=== PATIENT | female | born 1970 | race Caucasian/White ===

== ENCOUNTER 2016-02-25 19:17 | Emergency (ER) | payer OTHER ==
[~2016-02-25] VITALS: Ht 172.7 cm; Wt 158.8 kg
[~2016-02-25 19:17] MED LIST: CLON1TAB3 PO; ESOM40CA25 PO; ESTR1TAB15 PO; METF500T4 PO; MONT10TA9 PO; OMEP40CA2 PO; VENL75CA PO
[2016-02-25] MEDS ORDERED: NITROGLYCERIN SUBLINGUAL 0.4 MG BOTTLE OF 25. SL PRN (19:45)
[2016-02-25] MEDS ORDERED: FENTANYL PF 100 MCG/2 ML VIAL. IV PRN (19:45)
[2016-02-25 19:49] LABS: BASO # 0.1 x10^3/uL (0.0-0.2); BASO % 1 % (0-3); EOS % 2 % (0-3); HEMATOCRIT 39.8 % (36.0-47.0); HEMOGLOBIN 13.1 g/dL (12.0-15.5); LYMPH # 2.9 x10^3/uL (1.0-4.8); LYMPH % 23 % (24-48); MEAN CORPUSCULAR HEMOGLOBIN 30 pg (25-35); MEAN CORPUSCULAR HGB CONC 33 g/dL (31-37); MEAN CORPUSCULAR VOLUME 93 fL (79-100); MONO % 7 % (0-9); NEUT % 68 % (31-73); PLATELET COUNT 336 x10^3/uL (140-400); RED CELL DISTRIBUTION WIDTH 14.8 % (11.5-14.5); WHITE BLOOD COUNT 12.9 x10^3/uL (4.0-11.0)
[2016-02-25 20:01] LABS: CALCIUM 9.1 mg/dL (8.5-10.1); CREATININE 1.2 mg/dL (0.6-1.0); GFR 48.2; POTASSIUM 3.7 mmol/L (3.5-5.1)
[2016-02-25 20:03] LABS: PROTHROMBIN TIME PATIENT 12.4 SEC (11.7-14.0)
[2016-02-25 20:26] LABS: BILIRUBIN,URINE NEGATIVE (NEG); GLUCOSE,URINE NEGATIVE (NEG); NITRITE,URINE NEGATIVE (NEG); PROTEIN,URINE NEGATIVE (NEG-TRACE); UROBILINOGEN,URINE 0.2 mg/dL (0.2 mg/dL)
[2016-02-25 20:32] LABS: BARBITURATES NEG (NEG); BENZODIAZEPINES NEG (NEG); CANNABINOIDS NEG (NEG); COCAINE NEG (NEG); ETHANOL, URINE NEG (NEG); METHADONE NEG (NEG); OPIATES NEG (NEG); PHENCYCLIDINE NEG (NEG)
[2016-02-25 20:33] LABS: BACTERIA,URINE 0 /HPF (0-FEW)
[2016-02-25 20:34] LABS: SQUAMOUS EPITHELIAL CELL,UR FEW /LPF
[2016-02-25 20:37] LABS: NEG OBC UR NEG; POS OBC UR POS
--- NOTE | 2016-02-25 21:31 | EKG ---
[facility] [address] [place] [address] Test Date: 2016-02-25 Test Time: 19:32:44 Pat Name: JOANA LUBIN Department: Patient ID: 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
[2016-02-25 22:50] VITALS: BP 111/67
--- NOTE | 2016-02-26 02:16 | ED.ADGEN ---
Past Medical History Past Medical History: Diabetes-Type II, Other Additional Past Medical Histor: rheumatoid arthritis Past Surgical History: Cholecystectomy, Hysterectomy Alcohol Use: None Drug Use: None Adult General Chief Complaint Chief Complaint: CHEST PAIN HPI HPI Patient is a 45 year old woman, with a history of anxiety, hypertension, hyperlipidemia, type 2 diabetes mellitus, who presents emergency Department with a complaint of a panic attack. Patient states that she was at home, and she began to feel anxious about some life events, she states that she did take her clonazepam, which she had refilled today after being out of the medication for about a week. She states that she then attempted distract herself from her anxiety by playing a video game, but felt increasingly anxious, then developed some chest tightness in her left upper chest, and left arm. Patient states that she's had similar symptoms previously with panic attacks, and currently is experiencing no symptoms at this point. She denies any shortness breath, any nausea or vomiting, any weakness emesis or tingling, any radiation of the pain to the back neck or shoulder. States that she has not previously had a cardiac evaluation. There is no family history of early cardiac disease. No swelling extremities, history of recent travel or surgery, history of DVT or PE. Review of Systems Review of Systems Constitutional: Denies fever or chills. [] Eyes: Denies change in visual acuity. [] HENT: Denies nasal congestion or sore throat. [] Respiratory: Denies cough or shortness of breath. [] Cardiovascular: Denies chest pain or edema. [] GI: Denies abdominal pain, nausea, vomiting, bloody stools or diarrhea. [] : Denies dysuria. [] Musculoskeletal: Denies back pain or joint pain. [] Integument: Denies rash. [] Neurologic: Denies headache, focal weakness or sensory changes. [] Endocrine: Denies polyuria or polydipsia. [] Lymphatic: Denies swollen glands. [] Psychiatric: Denies depression or anxiety. [] Current Medications Current Medications Current Medications Medications (Trade) Dose Ordered Sig/Fortino Start Time Stop Time Status Last Admin Dose Admin Fentanyl Citrate (Fentanyl 2ml Vial) 25 mcg PRN Q15MIN PRN 02/25/16 19:45 02/25/16 23:08 DC Nitroglycerin (Nitrostat) 0.4 mg PRN Q5MIN PRN 02/25/16 19:45 02/25/16 23:08 DC Allergies Allergies Allergies Coded Allergies Type Severity Reaction Last Updated Verified No Known Drug Allergies 03/03/14 No Physical Exam Physical Exam Constitutional: Well developed, obese, no acute distress, non-toxic appearance. [] HENT: Normocephalic, atraumatic, bilateral external ears normal, oropharynx moist, no oral exudates, nose normal. [] Eyes: PERRLA, EOMI, conjunctiva normal, no discharge. [] Neck: Normal range of motion, no tenderness, supple, no stridor. [] Cardiovascular:Heart rate regular rhythm, no murmur, S1, S2, rubs or gallops. [] Lungs & Thorax: Bilateral breath sounds clear to auscultation, no wheezing, rhonchi, rales. No chest tenderness or crepitus. [] Abdomen: Bowel sounds normal, soft, no tenderness, no masses, no rebound, rigidity, no guarding, no pulsatile masses. [] Skin: Warm, dry, no erythema, no rash. [] Back: No tenderness, no CVA tenderness. [] Extremities: No tenderness, no cyanosis, no clubbing, ROM intact, no edema. Negative Homans sign. [] Neurologic: Alert and oriented X 3, normal motor function, normal sensory function, no focal deficits noted. [] Psychologic: Affect normal, judgement normal, mood normal. [] Current Patient Data Vital Signs Vital Signs Date Time Temp Pulse Resp B/P Pulse Ox O2 Delivery O2 Flow Rate FiO2 02/25/16 22:50 111/67 02/25/16 22:20 76 22 96 Room Air 02/25/16 19:25 98.7 98.7 Lab Values Laboratory Tests Test 02/25/16 19:39 02/25/16 20:10 02/25/16 22:03 White Blood Count 12.9x10^3/uL (4.0-11.0) H Red Blood Count 4.30x10^6/uL (3.50-5.40) Hemoglobin 13.1g/dL (12.0-15.5) Hematocrit 39.8% (36.0-47.0) Mean Corpuscular Volume 93fL (79-100) Mean Corpuscular Hemoglobin 30pg (25-35) Mean Corpuscular Hemoglobin Concent 33g/dL (31-37) Red Cell Distribution Width 14.8% (11.5-14.5) H Platelet Count 336x10^3/uL (140-400) Neutrophils (%) (Auto) 68% (31-73) Lymphocytes (%) (Auto) 23% (24-48) L Monocytes (%) (Auto) 7% (0-9) Eosinophils (%) (Auto) 2% (0-3) Basophils (%) (Auto) 1% (0-3) Neutrophils # (Auto) 8.7x10^3uL (1.8-7.7) H Lymphocytes # (Auto) 2.9x10^3/uL (1.0-4.8) Monocytes # (Auto) 0.9x10^3/uL (0.0-1.1) Eosinophils # (Auto) 0.2x10^3/uL (0.0-0.7) Basophils # (Auto) 0.1x10^3/uL (0.0-0.2) Prothrombin Time 12.4SEC (11.7-14.0) Prothrombin Time INR 1.0 (0.8-1.1) Sodium Level 140mmol/L (136-145) Potassium Level 3.7mmol/L (3.5-5.1) Chloride Level 104mmol/L (98-107) Carbon Dioxide Level 27mmol/L (21-32) Anion Gap 9 (6-14) Blood Urea Nitrogen 19mg/dL (7-20) Creatinine 1.2mg/dL (0.6-1.0) H Estimated GFR (Cockcroft-Gault) 48.2 Glucose Level 129mg/dL (70-99) H Calcium Level 9.1mg/dL (8.5-10.1) Troponin I Quantitative < 0.017ng/mL (0.000-0.055) MI-Per-F-Type Natriuretic Peptide 156pg/mL (0-124) H Lipase 221U/L (73-393) Urine Collection Type Unknown Urine Color Yellow Urine Clarity Clear Urine pH 6.0 Urine Specific [place] 1.025 Urine Protein Negativemg/dL (NEG-TRACE) Urine Glucose (UA) Negativemg/dL (NEG) Urine Ketones (Stick) Tracemg/dL (NEG) Urine Blood Negative (NEG) Urine Nitrite Negative (NEG) Urine Bilirubin Negative (NEG) Urine Urobilinogen Dipstick 0.2mg/dL (0.2 mg/dL) Urine Leukocyte Esterase Trace (NEG) Urine RBC 1-2/HPF (0-2) Urine WBC 1-4/HPF (0-4) Urine Squamous Epithelial Cells Few/LPF Urine Bacteria 0/HPF (0-FEW) Urine Mucus Slight/LPF Urine Test Negative (NEG) Urine Opiates Screen Neg (NEG) Urine Methadone Screen Neg (NEG) Urine Barbiturates Neg (NEG) Urine Phencyclidine Screen Neg (NEG) Urine Amphetamine/Methamphetamine Neg (NEG) Urine Benzodiazepines Screen Neg (NEG) Urine Cocaine Screen Neg (NEG) Urine Cannabinoids Screen Neg (NEG) Urine Ethyl Alcohol Neg (NEG) POC Troponin I 0.00ng/ml (<0.08) Laboratory Tests 02/25/16 19:39 Laboratory Tests 02/25/16 19:39 EKG EKG EC: Sinus rhythm, heart rate 74 bpm, upright axis, QTC of 407, HI 168, QRS of 94, no ST elevations or depressions, no evidence of acute ST abnormalities. As interpreted by me. Radiology/Procedures Radiology/Procedures Chest x-ray: Patient with limited respiratory effort, normal-appearing cardiac silhouette, no infiltrates, no effusions, no soft tissue or bony abnormalities identified in the visualized area. As interpreted by me. [] Course & Med Decision Making Course & Med Decision Making Pertinent Labs and Imaging studies reviewed. (See chart for details) Patient states that she has resolution of her symptoms at this time, states that they lasted for only a few minutes, however based on her history of tubal comorbidities, and lack of previous evaluation, she is agreeable to receiving evaluation at this time in the ED. ECG obtained reveals no evidence of concerning findings, chest x-ray was unremarkable, initial troponin was negative , as was troponin performed after 3 hours in the ED, which is now more than 4 hours out from the patient's initial symptoms. I did discuss potential admission to the hospital for additional evaluation of her symptoms, patient declined admission, stating that she would be able to follow-up with her primary care provider, and also with her mental health specialist for additional evaluation, she would also return to the ED if any new or concerning symptoms develop. Patient discharged home in stable condition with family with plan as stated above. Dragon Disclaimer Dragon Disclaimer This electronic medical record was generated, in whole or in part, using a voice recognition dictation system. Departure Impression: Primary Impression: Anxiety Additional Impression: Chest pain Disposition: HOME, SELF-CARE Condition: IMPROVED Problem Qualifiers Additional Impression: Chest pain Chest pain type: unspecified Qualified Code: R07.9 - Chest pain, unspecified CINTIA QUINTERO DO Feb 26, 2016 02:16
--- NOTE | 2016-02-26 08:21 | RAD ---
Indication chest pain. Tachycardia. History of hypertension. A single view of the chest was obtained. Comparison is made to an exam 2 years earlier. Heart size is at the upper limits of normal. There is no congestive heart failure focal infiltrate significant pleural fluid collection or pneumothorax. Bony structures appear grossly intact. IMPRESSION: No acute or focal process is seen in the chest
== END 2016-02-25 23:00 | disposition home or self-care (01) ==
LOC: ER 19:17
DX: F41.9 Anxiety disorder, unspecified (principal); R07.89 Other chest pain; E11.9 Type 2 diabetes mellitus without complications; E78.5 Hyperlipidemia, unspecified; I10 Essential (primary) hypertension; M06.9 Rheumatoid arthritis, unspecified; Z90.49 Acquired absence of other specified parts of digestive tract; Z90.710 Acquired absence of both cervix and uterus
CPT/HCPCS: 36415; 71010; 80048; 81001; 81025; 83690; 83880; 84484; 85027; 85610; 93005; 99285; G0481

== ENCOUNTER 2017-08-05 07:04 | Emergency (ER) | payer OTHER ==
[2017-08-05 08:11] LABS: ADD MAN DIFF? NO
[2017-08-05] MEDS: IV NORMAL SALINE 1000ML BAG 1,000 ML IV (08:18)
[2017-08-05 08:26] LABS: ANION GAP 11 (6-14); BLOOD UREA NITROGEN 17 mg/dL (7-20); BUN/CREATININE RATIO 15 (6-20); CALCIUM 9.3 mg/dL (8.5-10.1); CARBON DIOXIDE 27 mmol/L (21-32); CHLORIDE 101 mmol/L (98-107); CREATININE 1.1 mg/dL (0.6-1.0); GFR 52.8; GLUCOSE 132 mg/dL (70-99); POTASSIUM 3.5 mmol/L (3.5-5.1); SODIUM 139 mmol/L (136-145)
[2017-08-05 08:32] LABS: ALBUMIN 3.6 g/dL (3.4-5.0); ALBUMIN/GLOBULIN RATIO 0.8 (1.0-1.7); ALK PHOS 90 U/L (46-116); ALT (SGPT) 40 U/L (14-59); AST (SGOT) 30 U/L (15-37); TOTAL BILIRUBIN 0.5 mg/dL (0.2-1.0); TOTAL PROTEIN 7.9 g/dL (6.4-8.2)
[2017-08-05 08:38] LABS: BASO # 0.1 x10^3/uL (0.0-0.2); BASO % 1 % (0-3); EOS # 0.2 x10^3/uL (0.0-0.7); EOS % 2 % (0-3); HEMATOCRIT 39.1 % (36.0-47.0); HEMOGLOBIN 13.1 g/dL (12.0-15.5); LYMPH # 3.5 x10^3/uL (1.0-4.8); LYMPH % 31 % (24-48); MEAN CORPUSCULAR HEMOGLOBIN 29 pg (25-35); MEAN CORPUSCULAR HGB CONC 34 g/dL (31-37); MEAN CORPUSCULAR VOLUME 86 fL (79-100); MONO % 8 % (0-9); NEUT # 6.7 x10^3uL (1.8-7.7); NEUT % 59 % (31-73); PLATELET COUNT 311 x10^3/uL (140-400); RED BLOOD COUNT 4.54 x10^6/uL (3.50-5.40); RED CELL DISTRIBUTION WIDTH 15.7 % (11.5-14.5); WHITE BLOOD COUNT 11.4 x10^3/uL (4.0-11.0)
[2017-08-05] MEDS: IOHEXOL 300 MG/ML 100ML VIAL. IV (09:00)
[2017-08-05] MEDS ORDERED: CONTRAST GIVEN. MC (09:15)
[2017-08-05 09:46] LABS: BILIRUBIN,URINE NEGATIVE (NEG); CLARITY,URINE CLEAR; COLOR,URINE YELLOW; GLUCOSE,URINE NEGATIVE (NEG); NITRITE,URINE NEGATIVE (NEG); PROTEIN,URINE NEGATIVE (NEG-TRACE); UROBILINOGEN,URINE 0.2 mg/dL (0.2 mg/dL)
[2017-08-05 09:50] LABS: BACTERIA,URINE 0 /HPF (0-FEW); RBC,URINE 0 /HPF (0-2); SQUAMOUS EPITHELIAL CELL,UR FEW /LPF
== END 2017-08-05 10:36 | disposition home or self-care (01) ==
LOC: ER 07:04
DX: R10.31 Right lower quadrant pain (principal); E11.9 Type 2 diabetes mellitus without complications; I10 Essential (primary) hypertension; M19.90 Unspecified osteoarthritis, unspecified site; Z90.49 Acquired absence of other specified parts of digestive tract; Z90.710 Acquired absence of both cervix and uterus
CPT/HCPCS: 36415; 74177; 80053; 81001; 84702; 85025; 87086; 96360; 96361; 99285-25; J7030; Q9967

== ENCOUNTER → 2017-10-03 | Day surgery (SDC) | payer OTHER ==
[~2017-10-03] MED LIST changes: -CLON1TAB3 PO; +CLON1TAB4 PO; +IV RINGERS,LACTATED 1000ML 1,000 ML IV SCH; +LIDOCAINE 1% PF 2 ML VIAL. ID PRN; +LIDOCAINE 2% PF Vial for OR 5 ML VIAL. ONE; +LISI-338 PO; -METF500T4 PO; +METF500T5 PO; +MIDAZOLAM HCL/PF 2 MG/2 ML VIAL. IV PRN; +PANT20TA2 PO; +PRAV40TA2 PO; +PROPOFOL 20 ML IV ONE; +SERT100T PO; +fentaNYL PF VIAL 100 MCG/2 ML VIAL IV PRN
[2017-10-03 11:47] VITALS: BP 117/59
--- NOTE | 2017-10-05 10:53 | PATHOLOGY ---
[facility] Accession Number: [id number] . 01 Material submitted: . ANTRUM BIOPSY . 01 Clinical history: . Abdominal pain . 02 Diagnosis: Gastric biopsy, antrum: - Mild chronic gastritis, focally active. (JPM:yamilka; 10/04/2017) QMS/10/04/2017 . 02 Comment: Sections of the gastric antral biopsy show congestion and focally active mild chronic inflammation. A properly controlled immunoperoxidase stain for Helicobacter is negative for helicobacter organisms. There is no evidence of malignancy. (JPM:yamilka; 10/04/2017) . . . Special stain performed: Immunoperoxidase stain for Helicobacter . 02 Electronically signed: . Blake Martel MD, Pathologist NPI- [id number] . 01 Gross description: . Received in formalin labeled "Makayla Clemente, antrum biopsy," are 2 segments of saldana soft tissue measuring 0.9 x 0.2 x 0.2 cm in aggregate dimensions and ranging from 0.4 to 0.5 cm in maximum dimension. The specimen is submitted entirely in cassette A1. (TSD; 10/03/2017) TOB/TOB . 02 Pathologist provided ICD-10: K29.50 . 02 CPT . 482008, [id number] Performed at: 01 [facility] [address], [place] [id number] MD Haja Thompson MD Phone: [phone] Performed at: 02 [facility] [address], [place] [id number] MD Blake Martel MD Phone: [phone]
== END | disposition home or self-care (01) ==
LOC: ENDOS 09:46
PROVIDERS: ATTEND Internal Medicine Gastroenterology
DX: K29.50 Unspecified chronic gastritis without bleeding (principal); Z90.49 Acquired absence of other specified parts of digestive tract; I10 Essential (primary) hypertension; F32.9 Major depressive disorder, single episode, unspecified; K21.9 Gastro-esophageal reflux disease without esophagitis; F41.1 Generalized anxiety disorder; E11.9 Type 2 diabetes mellitus without complications; E78.00 Pure hypercholesterolemia, unspecified; E66.9 Obesity, unspecified; Z68.43 Body mass index [BMI] 50.0-59.9, adult; Z86.010 Personal history of colon polyps; M17.0 Bilateral primary osteoarthritis of knee; Z90.710 Acquired absence of both cervix and uterus; Z79.899 Other long term (current) drug therapy; Z88.5 Allergy status to narcotic agent; Z79.84 Long term (current) use of oral hypoglycemic drugs
CPT/HCPCS: 43239; J2001; J2704; 88305; 88342

== ENCOUNTER 2017-10-28 14:35 | Emergency (ER) | payer OTHER ==
[~2017-10-28] VITALS: Ht 172.7 cm; Wt 136.1 kg
[~2017-10-28 14:35] MED LIST changes: -IV RINGERS,LACTATED 1000ML 1,000 ML IV SCH; -LIDOCAINE 1% PF 2 ML VIAL. ID PRN; -LIDOCAINE 2% PF Vial for OR 5 ML VIAL. ONE; +METF500T16 PO; -METF500T5 PO; -MIDAZOLAM HCL/PF 2 MG/2 ML VIAL. IV PRN; -PROPOFOL 20 ML IV ONE; -fentaNYL PF VIAL 100 MCG/2 ML VIAL IV PRN
[2017-10-28] MEDS ORDERED: IPRATRPIUM/ALBUTEROL 0.5/2.5MG 3 ML NEBU. NEB ONE (15:15)
[2017-10-28] MEDS ORDERED: predniSONE 20 MG TABLET PO ONE (15:15)
--- NOTE | 2017-10-28 15:28 | PHYS DOC ---
Past Medical History Past Medical History: Anxiety, Diabetes-Type II, Hypertension, Other Additional Past Medical Histor: rheumatoid arthritis, ibs Past Surgical History: Cholecystectomy, Hysterectomy Alcohol Use: None Drug Use: None Adult General Chief Complaint Chief Complaint: SHORTNESS OF BREATH HPI HPI Patient is a 47 year old female with history of diabetes type 2, anxiety, hypertension, who presents today complaining of her allergies acting up. Patient states for the last 2 days she's not been able to breathe well through her nose, she states she is congested. She also states she has not had a good night sleep for couple days. She states she would like something to help her sleep. She states she is currently trying Benadryl with no relief. Patient denies any fever. Denies any chest pain. Denies any shortness of breath. She states she is currently using Flonase and Singulair for her allergies with no relief. PCP Dr. Aguirre Review of Systems Review of Systems Constitutional: Denies fever or chills [] Eyes: Denies change in visual acuity, redness, or eye pain [] HENT: Reports nasal congestion, denies sore throat [] Respiratory: Reports cough, denies shortness of breath [] Cardiovascular: No additional information not addressed in HPI [] GI: Denies abdominal pain, nausea, vomiting, bloody stools or diarrhea [] : Denies dysuria or hematuria [] Musculoskeletal: Denies back pain or joint pain [] Integument: Denies rash or skin lesions [] Neurologic: Denies headache, focal weakness or sensory changes [] All other systems were reviewed and found to be within normal limits, except as documented in this note. Current Medications Current Medications Current Medications Medications (Trade) Dose Ordered Sig/Fortino Start Time Stop Time Status Last Admin Dose Admin Albuterol/ Ipratropium (Duoneb) 3 ml 1X ONCE 10/28/17 15:15 10/28/17 15:16 DC 10/28/17 16:15 3 ML Prednisone (Prednisone) 60 mg 1X ONCE 10/28/17 15:15 10/28/17 15:16 DC 10/28/17 15:26 60 MG Allergies Allergies Allergies Coded Allergies Type Severity Reaction Last Updated Verified No Known Drug Allergies 10/28/17 No Physical Exam Physical Exam Constitutional: Well developed, well nourished, no acute distress, non-toxic appearance. [] HENT: Normocephalic, atraumatic, bilateral external ears normal, oropharynx moist, no oral exudates, nose normal. [employer] [place] Eyes: PERRLA, EOMI, conjunctiva normal, no discharge. [] Neck: Normal range of motion, no tenderness, supple, no stridor. [] Cardiovascular:Heart rate regular rhythm, no murmur [] Lungs & Thorax: Bilateral breath sounds clear to auscultation [] Abdomen: Bowel sounds normal, soft, no tenderness, no masses, no pulsatile masses. [] Skin: Warm, dry, no erythema, no rash. [] Back: No tenderness, no CVA tenderness. [] Extremities: No tenderness, no cyanosis, no clubbing, ROM intact, no edema. [] Neurologic: Alert and oriented X 3, normal motor function, normal sensory function, no focal deficits noted. [] Psychologic: Affect normal, judgement normal, mood normal. [] Current Patient Data Vital Signs Vital Signs Date Time Temp Pulse Resp B/P (MAP) Pulse Ox O2 Delivery O2 Flow Rate FiO2 10/28/17 16:15 94 Room Air 10/28/17 14:45 98.9 73 18 158/69 (98) 98.9 EKG EKG [] Radiology/Procedures Radiology/Procedures []PROCEDURE: CHEST AP ONLY Exam: AP portable chest History: Cough and shortness of breath for 5 days. Comparison: February 25, 2016. Findings: There is suboptimal inspiration. The heart and mediastinal structures are within normal limits for size. Lungs are without infiltrate. No pleural effusion or pneumothorax is identified. Accentuation of pulmonary vessels is favored to be artifact of suboptimal inspiration. Impression: 1. No acute cardiopulmonary process. Electronically signed by: Neil Messer MD (10/28/2017 3:25 PM) [facility] DICTATED and SIGNED BY: NEIL MESSER MD DATE: 10/28/17 1524 Course & Med Decision Making Course & Med Decision Making Pertinent Labs and Imaging studies reviewed. (See chart for details) This is a 47-year-old female patient presenting to the ED today complaining of her allergies acting up. She is also requesting something to help her sleep. He has an appointment with her own doctor on . She is currently using Flonase and Singulair. Chest x-ray interpreted by radiologist are negative for any acute findings. Vitals on arrival to the ED temperature 98.9, heart rate 73, respiration 18 on room air, O2 sats 98% on room air, blood pressure 158/69. Patient was given a DuoNeb treatment in the ED, she states she is breathing better. She was also given one dose of prednisone. She was discharged at home with instructions to follow-up with her PCP on as scheduled. Given a prescription for albuterol inhaler. Also given hydroxyzine to help her with her sleeping. She was also asking for Ambien. Instructed her to talk to her doctor on and see if her doctor would like to have some Ambien. Dragon Disclaimer Dragon Disclaimer This electronic medical record was generated, in whole or in part, using a voice recognition dictation system. Departure Departure Impression: Primary Impression: Seasonal allergies Additional Impression: Insomnia Disposition: HOME, SELF-CARE Condition: STABLE Referrals: CHARLES AGUIRRE MD (PCP) Follow-up on as scheduled Patient Instructions: Allergic Rhinitis, Insomnia Additional Instructions: You were evaluated in the emergency room with seasonal allergy symptoms as well as insomnia. Continue using her Flonase and Singulair. Use albuterol as needed for shortness of breath. Follow-up with your own doctor on as scheduled and see if he can put you on Ambien to help you sleep. In the meantime take hydroxyzine. Scripts Hydroxyzine Hcl (HYDROXYZINE HCL) 25 Mg Tablet 1 TAB PO TID, #30 TAB Prov: JAMIL VO APRN 10/28/17 Albuterol Sulfate (VENTOLIN HFA INHALER) 18 Gm Hfa.aer.ad 2 PUFF INH Q4HRS for FOR ASTHMA, #1 INHALER 0 Refills Prov: JAMIL VO APRN 10/28/17 Problem Qualifiers Additional Impression: Insomnia Insomnia type: unspecified Qualified Codes: G47.00 - Insomnia, unspecified JAMIL VO APRN Oct 28, 2017 15:28
[2017-10-28] MEDS ORDERED: VENTOLIN HFA18 GM INH (16:31)
[2017-10-28] MEDS ORDERED: HYDR25TA PO (16:31)
[2017-10-28 17:00] VITALS: BP 152/78
== END 2017-10-28 17:09 | disposition home or self-care (01) ==
LOC: ER 14:35
DX: G47.00 Insomnia, unspecified (principal); J30.2 Other seasonal allergic rhinitis; E11.9 Type 2 diabetes mellitus without complications; I10 Essential (primary) hypertension; F41.9 Anxiety disorder, unspecified; K58.9 Irritable bowel syndrome, unspecified
CPT/HCPCS: 71045; 94640; 99283; J7512; J7620

== ENCOUNTER 2017-11-22 07:00 | Emergency (ER) | payer OTHER ==
[~2017-11-22] VITALS: Ht 172.7 cm; Wt 145.1 kg
[~2017-11-22 07:00] MED LIST changes: +HYDR25TA PO; +VENTOLIN HFA18 GM INH
[2017-11-22] MEDS ORDERED: clonazePAM 0.5 MG TABLET PO STA (07:19)
--- NOTE | 2017-11-22 08:03 | PHYS DOC ---
Past Medical History Past Medical History: Anxiety, Diabetes-Type II, Hypertension, Other Additional Past Medical Histor: rheumatoid arthritis, ibs Past Surgical History: Cholecystectomy, Hysterectomy Alcohol Use: None Drug Use: None Adult General Chief Complaint Chief Complaint: SHORTNESS OF BREATH [facility] HPI Patient is a 47 year old female brought in by eminence with dry mouth. She tells me that she took Sudafed on top of a sleeping pill she did not overtake it she just took them together she was not trying to hurt herself she just woke up feeling anxious with dry mouth she reported some transient shortness of breath and palpitations that have since resolved no chest pain no fever she currently feels better she just got anxious she tells me she lives with her mother who cannot drive so she called 911 to be evaluated just to get just make sure she is okay Review of Systems Review of Systems Constitutional: Denies fever or chills [] Eyes: Denies change in visual acuity, redness, or eye pain [] Cardiovascular: No additional information not addressed in HPI [] GI: Denies abdominal pain, nausea, vomiting, bloody stools or diarrhea [] : Denies dysuria or hematuria [] Musculoskeletal: Denies back pain or joint pain [] Integument: Denies rash or skin lesions [] Neurologic: Denies headache, focal weakness or sensory changes [] All other systems were reviewed and found to be within normal limits, except as documented in this note. Current Medications Current Medications Current Medications Medications (Trade) Dose Ordered Sig/Fortino Start Time Stop Time Status Last Admin Dose Admin Clonazepam (KlonoPIN) 1 mg 1X STAT 11/22/17 07:19 11/22/17 07:25 DC 11/22/17 07:46 1 MG Allergies Allergies Allergies Coded Allergies Type Severity Reaction Last Updated Verified No Known Drug Allergies 10/28/17 No Physical Exam Physical Exam Constitutional: Well developed, well nourished, no acute distress, non-toxic appearance. [] HENT: Normocephalic, atraumatic, bilateral external ears normal, oropharynx dry , no oral exudates, nose normal. [] Eyes: PERRLA, EOMI, conjunctiva normal, no discharge. [] Neck: Normal range of motion, no tenderness, supple, no stridor. [] Cardiovascular:Heart rate regular rhythm, no murmur [] Lungs & Thorax: Bilateral breath sounds clear to auscultation [] Abdomen: Bowel sounds normal, soft, no tenderness, no masses, no pulsatile masses. [] Skin: Warm, dry, no erythema, no rash. [] Back: No tenderness, no CVA tenderness. [] Extremities: No tenderness, no cyanosis, no clubbing, ROM intact, no edema. [] Neurologic: Alert and oriented X 3, normal motor function, normal sensory function, no focal deficits noted. [] Psychologic: Affect normal, judgement normal, mood mild anxiety noted Current Patient Data Vital Signs Vital Signs Date Time Temp Pulse Resp B/P (MAP) Pulse Ox O2 Delivery O2 Flow Rate FiO2 11/22/17 07:08 98.5 70 19 160/72 (101) 99 Room Air 98.5 Lab Values Laboratory Tests Test 11/22/17 07:42 Glucose (Fingerstick) 130 mg/dL (70-99) H EKG EKG [] Radiology/Procedures Radiology/Procedures [] Course & Med Decision Making Course & Med Decision Making Pertinent Labs and Imaging studies reviewed. (See chart for details) []This is a well-appearing 47-year-old female with the above past medical history who is brought in by ambulance with dry mouth after taking Sudafed and [id number] sleeping aid together. She said she normally would sleep for 8 hours after taking this but she only slept for 3 and then she woke up with the above symptoms so she came to get checked out. Patient is well-appearing nonfocal neuro exam no concerning clinical symptoms by history blood sugar normal. pt requested clonazepam refill. i gave dose here but advised call pmd for refills Dragon Disclaimer Dragon Disclaimer This electronic medical record was generated, in whole or in part, using a voice recognition dictation system. Departure Departure Impression: Primary Impression: Elevated blood pressure reading Additional Impression: Anxiety Disposition: 01 HOME, SELF-CARE Condition: STABLE Referrals: CHARLES RING MD (PCP) Patient Instructions: Anxiety and Panic Attacks, Ogqz-lf-Vuya Problem Qualifiers GAMAL RITTER MD Nov 22, 2017 08:03
[2017-11-22 08:15] VITALS: BP 120/69
== END 2017-11-22 08:23 | disposition home or self-care (01) ==
LOC: ER 07:00
DX: I10 Essential (primary) hypertension (principal); F41.9 Anxiety disorder, unspecified; E11.9 Type 2 diabetes mellitus without complications; M06.9 Rheumatoid arthritis, unspecified
CPT/HCPCS: 82962; 99283

== ENCOUNTER 2018-04-16 01:12 | Emergency (ER) | payer OTHER ==
[~2018-04-16] VITALS: Ht 172.7 cm; Wt 145.1 kg
[~2018-04-16 01:12] MED LIST changes: +CLON1TAB11 PO; -CLON1TAB4 PO
[2018-04-16 01:15] VITALS: BP 142/84
[2018-04-16] MEDS ORDERED: TRAZ-118 PO (02:06)
--- NOTE | 2018-04-16 02:20 | PHYS DOC ---
Past Medical History Past Medical History: Anxiety, Diabetes-Type II, Hypertension, Other Additional Past Medical Histor: rheumatoid arthritis, ibs Past Surgical History: Cholecystectomy, Hysterectomy Alcohol Use: None Drug Use: None Adult General Chief Complaint Chief Complaint: HYPERTENSION HPI HPI Patient is a 48 year old female who presents for elevated blood pressure blood pressure was 149/100 at home she got very nervous she came to the ER for evaluation she said she's been under a lot of stress recently blood pressure in my evaluation is 133/65 no chest pain Review of Systems Review of Systems Otherwise negative except as noted in the history of present illness patient denies shortness of breath does report insomnia Allergies Allergies Allergies Coded Allergies Type Severity Reaction Last Updated Verified No Known Drug Allergies 10/28/17 No Physical Exam Physical Exam Constitutional: Well developed, well nourished, no acute distress, non-toxic appearance. [] HENT: Normocephalic, atraumatic, bilateral external ears normal, oropharynx moist, no oral exudates, nose normal. [] Eyes: PERRLA, EOMI, conjunctiva normal, no discharge. [] Neck: Normal range of motion, no tenderness, supple, no stridor. [] Pulmonary: Normal respiratory effort no increased work of breathing no obvious chest wall trauma Abdomen: Bowel sounds normal, soft, no tenderness, no masses, no pulsatile masses. [] Skin: Warm, dry, no erythema, no rash. [] Back: No tenderness, no CVA tenderness. [] Extremities: No tenderness, no cyanosis, no clubbing, ROM intact, no edema. [] Neurologic: Alert and oriented X 3, normal motor function, normal sensory function, no focal deficits noted. [] Psychologic: Mild anxiety noted Current Patient Data Vital Signs Vital Signs Date Time Temp Pulse Resp B/P (MAP) Pulse Ox O2 Delivery O2 Flow Rate FiO2 04/16/18 01:15 98.1 90 20 142/84 (103) 97 Room Air 98.1 EKG EKG [] Radiology/Procedures Radiology/Procedures [] Course & Med Decision Making Course & Med Decision Making Pertinent Labs and Imaging studies reviewed. (See chart for details) []BP is normal in the emergency room on my check 133/65. Patient does endorse a lot of stressors at home taking care of the mother who has been sick issues with her in addition she is having insomnia. She says it is hard for her to sleep that makes the anxiety worse and that makes her blood pressure go up she checks it and then that's why she came to the ER [facility] at 2 in the morning. Prescription for trazodone was supplied she was advised to avoid taking this with clonazepam to just take it before sleep to help her get to sleep and follow-up with her primary care doctor for further instructions. She is agreeable to the plan questions were answered. Dragon Disclaimer Dragon Disclaimer This electronic medical record was generated, in whole or in part, using a voice recognition dictation system. Departure Departure Impression: Primary Impression: Anxiety Disposition: HOME, SELF-CARE Condition: STABLE Referrals: CHARLES RING MD (PCP) Patient Instructions: Anxiety and Panic Attacks, [id number] Scripts Trazodone Hcl (TRAZODONE HCL) 50 Mg Tablet 1 TAB PO QHS, #30 TAB 0 Refills Prov: GAMAL RITTER MD 04/16/18 GAMAL RITTER MD Apr 16, 2018 02:20
== END 2018-04-16 02:10 | disposition home or self-care (01) ==
LOC: ER 01:12
DX: F41.9 Anxiety disorder, unspecified (principal); I10 Essential (primary) hypertension; E11.9 Type 2 diabetes mellitus without complications; G47.00 Insomnia, unspecified
CPT/HCPCS: 99284

== ENCOUNTER 2018-04-23 03:04 | Emergency (ER) | payer OTHER ==
[~2018-04-23] VITALS: Ht 172.7 cm; Wt 136.1 kg
[~2018-04-23 03:04] MED LIST changes: +TRAZ-118 PO
--- NOTE | 2018-04-23 03:27 | PHYS DOC ---
Past Medical History Past Medical History: Anxiety, Diabetes-Type II, Hypertension, Other Additional Past Medical Histor: rheumatoid arthritis, ibs Past Surgical History: Cholecystectomy, Hysterectomy Alcohol Use: None Drug Use: None Adult General Chief Complaint Chief Complaint: LOWER EXTREMITY SWELLING HPI HPI Patient is a 48-year-old female who presents to the emergency department for evaluation, she states that she's had a funny feeling in her knees and legs for the past few days, almost as if she is retaining water, as she states she has been drinking a lot of water. She denies any knee pain per se, or any injury. She has not had any edema, denies any numbness or weakness. She denies any chest pain or shortness of breath or orthopnea. She is able to ambulate without any significant difficulty. She does not have any pleuritic pain. There are no alleviating or exacerbating factors to the patient's symptoms. Review of Systems Review of Systems Constitutional: Denies fever or chills [] Eyes: Denies change in visual acuity, redness, or eye pain [] HENT: Denies nasal congestion or sore throat [] Respiratory: Denies cough or shortness of breath [] Cardiovascular: The patient denies any shortness of breath, chest pain, palpitations, or orthopnea [] GI: Denies abdominal pain, nausea, vomiting, bloody stools or diarrhea [] : Denies dysuria or hematuria [] Musculoskeletal: Denies back pain or joint pain [] Integument: Denies rash or skin lesions [] Neurologic: Denies headache, focal weakness or sensory changes [] Endocrine: Denies polyuria or polydipsia [] All other systems were reviewed and found to be within normal limits, except as documented in this note. Allergies Allergies Allergies Coded Allergies Type Severity Reaction Last Updated Verified No Known Drug Allergies 10/28/17 No Physical Exam Physical Exam PHYSICAL EXAM: CONSTITUTIONAL: Well developed, well nourished HEAD: normocephalic, atraumatic EENT: PERRL, EOMI. Conjunctivae normal color, sclerae non-icteric; moist mucous membranes. NECK: Supple, non-tender; no meningismus. LUNGS: Lungs CTA, breathing even and unlabored. Normal air movement. HEART: Regular rate and rhythm, no murmur CHEST: No deformity; non-tender ABDOMEN: The abdomen is soft, and non-tender, no masses or bruits. EXTREM: Normal ROM; no deformity, no calf tenderness. Normal pulses palpable in all extremities. There is no pedal edema. There is no warmth or erythema, or noticeable joint effusion in the knees bilaterally. The extremities are otherwise unremarkable. SKIN: No rash; no diaphoresis NEURO: Alert; normal speech and cognition; CN's grossly intact; strength grossly intact without focal deficit. BACK: No CVA TTP. . PSYCHIATRIC: The patient does have a moderately anxious affect, EKG EKG [] Radiology/Procedures Radiology/Procedures [] Course & Med Decision Making Course & Med Decision Making I do not believe the patient needs x-rays. There are some mild arthritic changes to her knees bilaterally, but this does not appear acute. Discussed use of [id number] analgesics as needed, the need for close PCP follow-up, and return precautions. Patient's blood pressure is noted to be moderately elevated. She states that this is because she is feeling anxious, and does not have any Klonopin. I did discuss importance of close follow-up with her PCP for further blood pressure monitoring. Dragon Disclaimer Dragon Disclaimer This electronic medical record was generated, in whole or in part, using a voice recognition dictation system. Departure Departure Impression: Primary Impression: Knee pain, bilateral Disposition: HOME, SELF-CARE Condition: STABLE Referrals: CHARLES RING MD (PCP) Patient Instructions: SabinaralDELMI Weeks MD Apr 23, 2018 03:27
[2018-04-23 03:35] VITALS: BP 181/77
[2018-04-24] MEDS ORDERED: CEPH500T PO (18:32)
[2018-04-24] MEDS ORDERED: POLY17PO29 PO (18:32)
== END 2018-04-23 03:42 | disposition home or self-care (01) ==
LOC: ER 03:04
DX: M25.561 Pain in right knee (principal); M25.562 Pain in left knee; I10 Essential (primary) hypertension; E11.9 Type 2 diabetes mellitus without complications; K58.9 Irritable bowel syndrome, unspecified; F41.9 Anxiety disorder, unspecified
CPT/HCPCS: 99284

== ENCOUNTER 2018-04-24 16:50 | Emergency (ER) | payer OTHER ==
[~2018-04-24] VITALS: Ht 160 cm; Wt 136.1 kg
[2018-04-24 17:19] LABS: BILIRUBIN,URINE NEGATIVE (NEG); CLARITY,URINE CLEAR; COLOR,URINE YELLOW; NITRITE,URINE NEGATIVE (NEG); PH,URINE 5.5; PROTEIN,URINE NEGATIVE (NEG-TRACE); UROBILINOGEN,URINE 0.2 mg/dL (0.2 mg/dL)
[2018-04-24 17:21] LABS: BASO # 0.1 x10^3/uL (0.0-0.2); BASO % 1 % (0-3); EOS # 0.2 x10^3/uL (0.0-0.7); EOS % 1 % (0-3); HEMATOCRIT 39.8 % (36.0-47.0); LYMPH # 2.3 x10^3/uL (1.0-4.8); LYMPH % 22 % (24-48); MEAN CORPUSCULAR HEMOGLOBIN 28 pg (25-35); MEAN CORPUSCULAR HGB CONC 33 g/dL (31-37); MEAN CORPUSCULAR VOLUME 85 fL (79-100); MONO # 0.7 x10^3/uL (0.0-1.1); MONO % 6 % (0-9); NEUT # 7.7 x10^3uL (1.8-7.7); NEUT % 71 % (31-73); PLATELET COUNT 326 x10^3/uL (140-400); RED CELL DISTRIBUTION WIDTH 15.6 % (11.5-14.5); WHITE BLOOD COUNT 10.9 x10^3/uL (4.0-11.0)
--- NOTE | 2018-04-24 17:23 | PHYS DOC ---
Past Medical History Past Medical History: Anxiety, Diabetes-Type II, Hypertension, Other Additional Past Medical Histor: rheumatoid arthritis, ibs (JAMIL VO APRN) Past Surgical History: Cholecystectomy, Hysterectomy (JAMIL VO APRN) Alcohol Use: None Drug Use: None (JAMIL VO APRN) Adult General Chief Complaint Chief Complaint: ABDOMINAL PAIN HPI HPI Patient is a 48 year old female with history of anxiety, hypertension, diabetes and 2, who presents to the ED today complaining of a sharp 8 out of 10 right lower quadrant abdominal pain nonradiating in nature with nausea that began this afternoon. Patient denies any fever. She states her last bowel movement was this afternoon though she states she could be constipated because of bowel movement was hard. (JAMIL VO APRN) Review of Systems Review of Systems Constitutional: Denies fever or chills [] Eyes: Denies change in visual acuity, redness, or eye pain [] HENT: Denies nasal congestion or sore throat [] Respiratory: Denies cough or shortness of breath [] Cardiovascular: No additional information not addressed in HPI [] GI: Reports right lower quadrant abdominal pain with nausea, denies vomiting, bloody stools or diarrhea [] : Denies dysuria or hematuria [] Musculoskeletal: Denies back pain or joint pain [] Integument: Denies rash or skin lesions [] Neurologic: Denies headache, focal weakness or sensory changes [] All other systems were reviewed and found to be within normal limits, except as documented in this note. (JAMIL VO APRN) Current Medications Current Medications Current Medications Medications (Trade) Dose Ordered Sig/Fortino Start Time Stop Time Status Last Admin Dose Admin Famotidine (Pepcid Vial) 20 mg 1X ONCE 04/24/18 17:30 04/24/18 17:31 DC 04/24/18 17:58 20 MG Info (CONTRAST GIVEN -- Rx MONITORING) 1 each PRN DAILY PRN 04/24/18 17:45 04/24/18 19:11 DC Iohexol (Omnipaque 300 Mg/ml) 60 ml 1X ONCE 04/24/18 17:45 04/24/18 17:46 DC 04/24/18 17:49 60 ML Magnesium Citrate (Citroma) 296 ml 1X ONCE 04/24/18 18:45 04/24/18 18:46 DC 04/24/18 19:00 296 ML Morphine Sulfate (Morphine Sulfate) 4 mg 1X ONCE 04/24/18 17:30 04/24/18 17:31 DC 04/24/18 17:58 4 MG Sodium Chloride 1,000 ml @ 1,000 mls/hr 1X ONCE 04/24/18 17:30 04/24/18 18:29 DC 04/24/18 17:57 1,000 MLS/HR (PEARL MALLORY DO) Allergies Allergies Allergies Coded Allergies Type Severity Reaction Last Updated Verified No Known Drug Allergies 10/28/17 No (PEARL MALLORY DO) Physical Exam Physical Exam Constitutional: Well developed, well nourished, no acute distress, non-toxic appearance. [] HENT: Normocephalic, atraumatic, bilateral external ears normal, oropharynx moist, no oral exudates, nose normal. [] Eyes: PERRLA, EOMI, conjunctiva normal, no discharge. [] Neck: Normal range of motion, no tenderness, supple, no stridor. [] Cardiovascular:Heart rate regular rhythm, no murmur [] Lungs & Thorax: Bilateral breath sounds clear to auscultation [] Abdomen: Morbidly obese, rounded abdomen. Bowel sounds normal, soft, slight tenderness the right lower quadrant, negative psoas sign, negative obturator sign, no guarding, no rebound tenderness no masses, no pulsatile masses. [] Skin: Warm, dry, no erythema, no rash. [] Back: No tenderness, no CVA tenderness. [] Extremities: No tenderness, no cyanosis, no clubbing, ROM intact, no edema. [] Neurologic: Alert and oriented X 3, normal motor function, normal sensory function, no focal deficits noted. [] Psychologic: Affect normal, judgement normal, mood normal. [] (JAMIL VO APRN) Current Patient Data Vital Signs Vital Signs Date Time Temp Pulse Resp B/P (MAP) Pulse Ox O2 Delivery O2 Flow Rate FiO2 04/24/18 18:30 66 107/55 (72) 98 Room Air 04/24/18 17:00 98.0 18 98.0 (PEARL MALLORY DO) Lab Values Laboratory Tests Test 04/24/18 17:00 04/24/18 17:08 Urine Collection Type Unknown Urine Color Yellow Urine Clarity Clear Urine pH 5.5 Urine Specific [place] 1.020 Urine Protein Negative mg/dL (NEG-TRACE) Urine Glucose (UA) Negative mg/dL (NEG) Urine Ketones (Stick) Negative mg/dL (NEG) Urine Blood Trace (NEG) Urine Nitrite Negative (NEG) Urine Bilirubin Negative (NEG) Urine Urobilinogen Dipstick 0.2 mg/dL (0.2 mg/dL) Urine Leukocyte Esterase Moderate (NEG) Urine RBC 1-2 /HPF (0-2) Urine WBC 5-10 /HPF (0-4) Urine Squamous Epithelial Cells Few /LPF Urine Bacteria Few /HPF (0-FEW) Urine Hyaline Casts Occasional /HPF Urine Mucus Mod /LPF Urine Opiates Screen Neg (NEG) Urine Methadone Screen Neg (NEG) Urine Barbiturates Neg (NEG) Urine Phencyclidine Screen Neg (NEG) Urine Amphetamine/Methamphetamine Neg (NEG) Urine Benzodiazepines Screen Neg (NEG) Urine Cocaine Screen Neg (NEG) Urine Cannabinoids Screen Neg (NEG) Urine Ethyl Alcohol Neg (NEG) White Blood Count 10.9 x10^3/uL (4.0-11.0) Red Blood Count 4.70 x10^6/uL (3.50-5.40) Hemoglobin 13.0 g/dL (12.0-15.5) Hematocrit 39.8 % (36.0-47.0) Mean Corpuscular Volume 85 fL (79-100) Mean Corpuscular Hemoglobin 28 pg (25-35) Mean Corpuscular Hemoglobin Concent 33 g/dL (31-37) Red Cell Distribution Width 15.6 % (11.5-14.5) H Platelet Count 326 x10^3/uL (140-400) Neutrophils (%) (Auto) 71 % (31-73) Lymphocytes (%) (Auto) 22 % (24-48) L Monocytes (%) (Auto) 6 % (0-9) Eosinophils (%) (Auto) 1 % (0-3) Basophils (%) (Auto) 1 % (0-3) Neutrophils # (Auto) 7.7 x10^3uL (1.8-7.7) Lymphocytes # (Auto) 2.3 x10^3/uL (1.0-4.8) Monocytes # (Auto) 0.7 x10^3/uL (0.0-1.1) Eosinophils # (Auto) 0.2 x10^3/uL (0.0-0.7) Basophils # (Auto) 0.1 x10^3/uL (0.0-0.2) Sodium Level 140 mmol/L (136-145) Potassium Level 3.7 mmol/L (3.5-5.1) Chloride Level 102 mmol/L (98-107) Carbon Dioxide Level 24 mmol/L (21-32) Anion Gap 14 (6-14) Blood Urea Nitrogen 16 mg/dL (7-20) Creatinine 1.1 mg/dL (0.6-1.0) H Estimated GFR (Cockcroft-Gault) 52.6 BUN/Creatinine Ratio 15 (6-20) Glucose Level 206 mg/dL (70-99) H Calcium Level 9.2 mg/dL (8.5-10.1) Total Bilirubin 0.3 mg/dL (0.2-1.0) Aspartate Amino Transferase (AST) 25 U/L (15-37) Alanine Aminotransferase (ALT) 35 U/L (14-59) Alkaline Phosphatase 76 U/L (46-116) Total Protein 7.7 g/dL (6.4-8.2) Albumin 3.4 g/dL (3.4-5.0) Albumin/Globulin Ratio 0.8 (1.0-1.7) L Lipase 148 U/L (73-393) Ethyl Alcohol Level < 10 mg/dL (0-10) Laboratory Tests 04/24/18 17:08 Laboratory Tests 04/24/18 17:08 (PEARL MALLORY DO) Lab Values Laboratory Tests Test 04/24/18 17:00 04/24/18 17:08 Urine Collection Type Unknown Urine Color Yellow Urine Clarity Clear Urine pH 5.5 Urine Specific [place]lin 1.020 Urine Protein Negative mg/dL (NEG-TRACE) Urine Glucose (UA) Negative mg/dL (NEG) Urine Ketones (Stick) Negative mg/dL (NEG) Urine Blood Trace (NEG) Urine Nitrite Negative (NEG) Urine Bilirubin Negative (NEG) Urine Urobilinogen Dipstick 0.2 mg/dL (0.2 mg/dL) Urine Leukocyte Esterase Moderate (NEG) Urine RBC 1-2 /HPF (0-2) Urine WBC 5-10 /HPF (0-4) Urine Squamous Epithelial Cells Few /LPF Urine Bacteria Few /HPF (0-FEW) Urine Hyaline Casts Occasional /HPF Urine Mucus Mod /LPF Urine Opiates Screen Neg (NEG) Urine Methadone Screen Neg (NEG) Urine Barbiturates Neg (NEG) Urine Phencyclidine Screen Neg (NEG) Urine Amphetamine/Methamphetamine Neg (NEG) Urine Benzodiazepines Screen Neg (NEG) Urine Cocaine Screen Neg (NEG) Urine Cannabinoids Screen Neg (NEG) Urine Ethyl Alcohol Neg (NEG) White Blood Count 10.9 x10^3/uL (4.0-11.0) Red Blood Count 4.70 x10^6/uL (3.50-5.40) Hemoglobin 13.0 g/dL (12.0-15.5) Hematocrit 39.8 % (36.0-47.0) Mean Corpuscular Volume 85 fL (79-100) Mean Corpuscular Hemoglobin 28 pg (25-35) Mean Corpuscular Hemoglobin Concent 33 g/dL (31-37) Red Cell Distribution Width 15.6 % (11.5-14.5) H Platelet Count 326 x10^3/uL (140-400) Neutrophils (%) (Auto) 71 % (31-73) Lymphocytes (%) (Auto) 22 % (24-48) L Monocytes (%) (Auto) 6 % (0-9) Eosinophils (%) (Auto) 1 % (0-3) Basophils (%) (Auto) 1 % (0-3) Neutrophils # (Auto) 7.7 x10^3uL (1.8-7.7) Lymphocytes # (Auto) 2.3 x10^3/uL (1.0-4.8) Monocytes # (Auto) 0.7 x10^3/uL (0.0-1.1) Eosinophils # (Auto) 0.2 x10^3/uL (0.0-0.7) Basophils # (Auto) 0.1 x10^3/uL (0.0-0.2) Sodium Level 140 mmol/L (136-145) Potassium Level 3.7 mmol/L (3.5-5.1) Chloride Level 102 mmol/L (98-107) Carbon Dioxide Level 24 mmol/L (21-32) Anion Gap 14 (6-14) Blood Urea Nitrogen 16 mg/dL (7-20) Creatinine 1.1 mg/dL (0.6-1.0) H Estimated GFR (Cockcroft-Gault) 52.6 BUN/Creatinine Ratio 15 (6-20) Glucose Level 206 mg/dL (70-99) H Calcium Level 9.2 mg/dL (8.5-10.1) Total Bilirubin 0.3 mg/dL (0.2-1.0) Aspartate Amino Transferase (AST) 25 U/L (15-37) Alanine Aminotransferase (ALT) 35 U/L (14-59) Alkaline Phosphatase 76 U/L (46-116) Total Protein 7.7 g/dL (6.4-8.2) Albumin 3.4 g/dL (3.4-5.0) Albumin/Globulin Ratio 0.8 (1.0-1.7) L Lipase 148 U/L (73-393) Ethyl Alcohol Level < 10 mg/dL (0-10) Laboratory Tests 04/24/18 17:08 Laboratory Tests 04/24/18 17:08 (JAMIL VO APRN) EKG EKG [] (JAMIL VO APRN) Radiology/Procedures Radiology/Procedures []PROCEDURE: CT ABD PELV W/ IV CONTRST ONLY CT ABD PELV W/ IV CONTRST ONLY Indication: Right lower quadrant pain Technique: Postcontrast CT imaging was performed of the abdomen and pelvis, multiplanar reconstruction images submitted. One or more of the following individualized dose reduction techniques were utilized for this examination: 1. Automated exposure control 2. Adjustment of the mA and/or kV according to patient size 3. Use of iterative reconstruction technique. Comparison: August 05, 2017 Findings: There is some motion. There is no abnormality limited visualized lung bases. There may be hepatic steatosis. There has been cholecystectomy. Both kidneys enhance, no hydronephrosis. There is no adrenal nodularity. No focal abnormality is identified of the spleen or pancreas. Evaluation of bowel is limited without oral contrast. There is stool retention greatest of the rectosigmoid colon. Bowel is not slightly dilated. There is no free air or free fluid. Distal appendix is poorly visualized due to adjacent bowel, proximal appendix caliber within normal limits without adjacent inflammatory change. There is multilevel facet degenerative change, grade 1 anterior spondylolisthesis L4-5. There is degenerative disc disease greatest L4-5 and L5-S1. IMPRESSION: 1. Proximal appendix is visualized without adjacent inflammatory change, distally not well-visualized due to adjacent bowel. No significant inflammatory type change is identified. 2. There may be hepatic steatosis. Electronically signed by: Yoana Jacobs MD (04/24/2018 6:12 PM) [facility] DICTATED and SIGNED BY: YOANA JACOBS MD DATE: 04/24/181807 (JAMIL VO APRN) Course & Med Decision Making Course & Med Decision Making Pertinent Labs and Imaging studies reviewed. (See chart for details) This is a 48-year-old female patient presenting to the ED today complaining of right lower quadrant abdominal pain and constipation, symptoms began this afternoon, CBC with a normal WBC, CMP with glucose of 206 anion gap is normal, patient has known history of diabetes type 2, encouraged to use her diabetes medicines at home. Urine analysis noted for UTI, CT of the abdomen and pelvic is noted for constipation. Though the appendix was not completely well- visualized there is no inflammatory changes around the appendix. I doubt this patient has appendicitis. She was discharged with cephalexin and magnesium citrate. Also given prescription for MiraLAX. We talked about dietary fiber intake as well as water intake. Follow-up with primary care doctor in the course of this week or next week. (JAMIL VO APRN) Dragon Disclaimer Dragon Disclaimer This electronic medical record was generated, in whole or in part, using a voice recognition dictation system. (JAMIL VO APRN) Departure Departure Impression: Primary Impression: Urinary tract infection Additional Impression: Constipation Disposition: HOME, SELF-CARE Condition: STABLE Referrals: CHARLES RING MD (PCP) Follow-up in one week Patient Instructions: Constipation, Adult, Urinary Tract Infection Additional Instructions: You were evaluated in the emergency abdominal pain and noted to be constipated. You also have urinary tract infection, we put you on antibiotics, ensure you complete them. Increase your dietary fiber intake, increase your water intake to 64 ounces a day. Try and increase your activity level. Follow-up with your doctor next week Scripts Cephalexin (CEPHALEXIN) 500 Mg Tablet 1 TAB PO BID, #14 TAB Prov: JAMIL VO APRN 04/24/18 Polyethylene Glycol 3350 (MIRALAX) 17 Gm Powd.pack 1 PACKET PO DAILY, #30 PACKET 3 Refills Prov: JAMIL VO MARCIA 04/24/18 Attending Signature Attending Signature I have reviewed the PA/[employer]'s note and plan of care. I was available for consultation as needed during the patient's visit in the emergency department. I agree with the clinical impression, plan, and disposition. (PEARL MALLORY DO) Problem Qualifiers Primary Impression: Urinary tract infection Urinary tract infection type: site unspecified Hematuria presence: without hematuria Qualified Codes: N39.0 - Urinary tract infection, site not specified Additional Impression: Constipation Constipation type: unspecified constipation type Qualified Codes: K59.00 - Constipation, unspecified JAMIL VO MARCIA Apr 24, 2018 17:23 PEARL MALLORY DO Apr 25, 2018 05:11
[2018-04-24] MEDS ORDERED: FAMOTIDINE 20 MG/2 ML VIAL IVP ONE (17:30)
[2018-04-24] MEDS ORDERED: IV NORMAL SALINE 1000ML BAG 1,000 ML IV ONE (17:30)
[2018-04-24] MEDS ORDERED: MORPHINE SULFATE 4 MG/ML VIAL. IV ONE (17:30)
[2018-04-24 17:31] LABS: CALCIUM 9.2 mg/dL (8.5-10.1); CREATININE 1.1 mg/dL (0.6-1.0); GFR 52.6; POTASSIUM 3.7 mmol/L (3.5-5.1)
[2018-04-24 17:36] LABS: BACTERIA,URINE FEW /HPF (0-FEW); HYALINE CASTS, URINE OCCASIONAL /HPF; SQUAMOUS EPITHELIAL CELL,UR FEW /LPF
[2018-04-24 17:38] LABS: ALBUMIN 3.4 g/dL (3.4-5.0); ALBUMIN/GLOBULIN RATIO 0.8 (1.0-1.7); TOTAL BILIRUBIN 0.3 mg/dL (0.2-1.0); TOTAL PROTEIN 7.7 g/dL (6.4-8.2)
[2018-04-24 17:42] LABS: BARBITURATES NEG (NEG); BENZODIAZEPINES NEG (NEG); CANNABINOIDS NEG (NEG); COCAINE NEG (NEG); METHADONE NEG (NEG); OPIATES NEG (NEG); PHENCYCLIDINE NEG (NEG)
[2018-04-24] MEDS ORDERED: CONTRAST GIVEN. MC PRN (17:45)
[2018-04-24] MEDS ORDERED: IOHEXOL 300 MG/ML 100ML VIAL. IV ONE (17:45)
[2018-04-24 17:59] LABS: AMPHETAMINE/METHAMPHETAMINE NEG (NEG)
--- NOTE | 2018-04-24 18:15 | RAD ---
CT ABD PELV W/ IV CONTRST ONLY Indication: Right lower quadrant pain Technique: Postcontrast CT imaging was performed of the abdomen and pelvis, multiplanar reconstruction images submitted. One or more of the following individualized dose reduction techniques were utilized for this examination: 1. Automated exposure control 2. Adjustment of the mA and/or kV according to patient size 3. Use of iterative reconstruction technique. Comparison: August 05, 2017 Findings: There is some motion. There is no abnormality limited visualized lung bases. There may be hepatic steatosis. There has been cholecystectomy. Both kidneys enhance, no hydronephrosis. There is no adrenal nodularity. No focal abnormality is identified of the spleen or pancreas. Evaluation of bowel is limited without oral contrast. There is stool retention greatest of the rectosigmoid colon. Bowel is not slightly dilated. There is no free air or free fluid. Distal appendix is poorly visualized due to adjacent bowel, proximal appendix caliber within normal limits without adjacent inflammatory change. There is multilevel facet degenerative change, grade 1 anterior spondylolisthesis L4-5. There is degenerative disc disease greatest L4-5 and L5-S1. IMPRESSION: 1. Proximal appendix is visualized without adjacent inflammatory change, distally not well-visualized due to adjacent bowel. No significant inflammatory type change is identified. 2. There may be hepatic steatosis. Electronically signed by: Gary Puentes MD (04/24/2018 6:12 PM) [facility]
[2018-04-24 18:30] VITALS: BP 107/55
[2018-04-24] MEDS ORDERED: CEPH500T PO (18:32)
[2018-04-24] MEDS ORDERED: POLY17PO29 PO (18:32)
[2018-04-24] MEDS ORDERED: MAGNESIUM CITRATE 296 ML SOLUTION. PO ONE (18:45)
== END 2018-04-24 19:03 | disposition home or self-care (01) ==
LOC: ER 16:50
DX: N39.0 Urinary tract infection, site not specified (principal); K59.00 Constipation, unspecified; I10 Essential (primary) hypertension; E11.9 Type 2 diabetes mellitus without complications; Z90.49 Acquired absence of other specified parts of digestive tract; Z90.710 Acquired absence of both cervix and uterus
CPT/HCPCS: 36415; 74177; 80053; 80307; 81001; 83690; 85025; 87086; 96374; 96375; 99284; G0480; J2270; J3490; J7030; Q9967

== ENCOUNTER 2018-04-26 04:51 | Emergency (ER) | payer OTHER ==
[~2018-04-26] VITALS: Ht 172.7 cm; Wt 136.1 kg
[~2018-04-26 04:51] MED LIST changes: +CEPH500T PO; +POLY17PO29 PO
[2018-04-26] MEDS ORDERED: IV NORMAL SALINE 1000ML BAG 1,000 ML IV ONE ×2 (05:15)
[2018-04-26] MEDS ORDERED: diphenhydrAMINE 50 MG/ML VIAL IVP ONE (05:30)
[2018-04-26 05:51] LABS: CALCIUM 8.9 mg/dL (8.5-10.1); GFR 58.7; POTASSIUM 3.9 mmol/L (3.5-5.1)
[2018-04-26 06:05] LABS: ALBUMIN 3.4 g/dL (3.4-5.0); ALBUMIN/GLOBULIN RATIO 0.8 (1.0-1.7); MAGNESIUM 2.4 mg/dL (1.8-2.4); TOTAL BILIRUBIN 0.3 mg/dL (0.2-1.0); TOTAL PROTEIN 7.5 g/dL (6.4-8.2)
--- NOTE | 2018-04-26 06:05 | PHYS DOC ---
Past Medical History Past Medical History: Anxiety, Diabetes-Type II, Hypertension, Other Additional Past Medical Histor: rheumatoid arthritis, ibs (PEARL MALLORY DO) Past Surgical History: Cholecystectomy, Hysterectomy (PEARL MALLORY DO) Alcohol Use: None Drug Use: None (PEARL MALLORY DO) Adult General Chief Complaint Chief Complaint: PSYCH EVALUATION HPI HPI Patient is a 48 year old female presents to the ED with difficulty sleeping and "strange mouth movements". Patient states this started a few days ago after she began taking a new medication- tizanidine. Her mouth so feels dry and swollen and looks "pale". She reports was worse tonight while falling asleep. Patient reporting she smacks her lips and moves her mouth around in strange ways that she has not done before. She feels like she is not breathing as well while falling asleep. She is having no pain or other neurologic complaints. Denies suicidal or homicidal ideation. (PEARL MALLORY DO) Review of Systems Review of Systems Constitutional: Denies fever or chills [] Eyes: Denies change in visual acuity, redness, or eye pain [] HENT: Denies nasal congestion or sore throat [] Respiratory: Denies cough or shortness of breath [] Cardiovascular: Denies chest pain or palpitations. GI: Admits constipation. Denies abdominal pain, nausea, vomiting, bloody stools or diarrhea [] : Denies dysuria or hematuria [] Musculoskeletal: Denies back pain or joint pain [] Integument: Denies rash or skin lesions [] Neurologic: Admits change in sleep habits and involuntary movements of the mouth. Denies headache, focal weakness or sensory changes [] Complete systems were reviewed and found to be within normal limits, except as documented in this note. (PEARL MALLORY DO) Current Medications Current Medications Current Medications Medications (Trade) Dose Ordered Sig/Fortino Start Time Stop Time Status Last Admin Dose Admin Clonazepam (KlonoPIN) 1 mg 1X ONCE 04/26/18 06:30 04/26/18 06:31 DC 04/26/18 06:28 1 MG Diphenhydramine HCl (Benadryl) 50 mg 1X ONCE 04/26/18 05:30 04/26/18 05:33 DC 04/26/18 05:47 50 MG Lisinopril (Prinivil) 5 mg 1X ONCE 04/26/18 06:30 04/26/18 06:31 DC 04/26/18 06:29 5 MG Sodium Chloride 1,000 ml @ 1,000 mls/hr 1X ONCE 04/26/18 05:15 04/26/18 06:14 DC 04/26/18 05:32 1,000 MLS/HR (KEITHLY,BRIGETTE T DO) Allergies Allergies Allergies Coded Allergies Type Severity Reaction Last Updated Verified No Known Drug Allergies 10/28/17 No (KEITHLY,BRIGETTE T DO) Physical Exam Physical Exam Constitutional: Well developed, well nourished, no acute distress, non-toxic appearance. [] HENT: Pale dry oral mucosa. No white plaques or evidence of thrush. Normocephalic, atraumatic, bilateral external ears normal, nose normal. [] Eyes: PERRL, EOMI, conjunctiva normal, no discharge. [] Neck: Normal range of motion, no tenderness, supple, no stridor. [] Cardiovascular: Heart rate regular rhythm, no murmur [] Lungs & Thorax: Bilateral breath sounds clear to auscultation [] Abdomen: Soft, no tenderness [] Skin: Warm, dry, no erythema, no rash. [] Extremities: No tenderness, ROM intact Neurologic: Alert and oriented X 3, normal motor function, normal sensory function, no focal deficits noted. Cranial nerves II through XII intact. No ataxia noted[] Psychologic: Affect anxious, judgement normal (MALLORY,PEARL Araujo DO) Current Patient Data Vital Signs Vital Signs Date Time Temp Pulse Resp B/P (MAP) Pulse Ox O2 Delivery O2 Flow Rate FiO2 04/26/18 06:29 70 157/86 04/26/18 04:55 98.3 18 96 Room Air 98.3 (KEITHLY,BRIGETTE T DO) Lab Values Laboratory Tests Test 04/26/18 05:25 04/26/18 05:32 Urine Collection Type Unknown Urine Color [place] Urine Clarity Cloudy Urine pH 5.5 Urine Specific [place] >=1.030 Urine Protein 100 mg/dL (NEG-TRACE) Urine Glucose (UA) Negative mg/dL (NEG) Urine Ketones (Stick) Trace mg/dL (NEG) Urine Blood Negative (NEG) Urine Nitrite Negative (NEG) Urine Bilirubin Small (NEG) Urine Urobilinogen Dipstick 0.2 mg/dL (0.2 mg/dL) Urine Leukocyte Esterase Moderate (NEG) Urine RBC 0 /HPF (0-2) Urine WBC 11-20 /HPF (0-4) Urine Squamous Epithelial Cells Mod /LPF Urine Amorphous Sediment Present /HPF Urine Bacteria Few /HPF (0-FEW) Urine Hyaline Casts Occasional /HPF Urine Mucus Slight /LPF White Blood Count 11.4 x10^3/uL (4.0-11.0) H Red Blood Count 4.55 x10^6/uL (3.50-5.40) Hemoglobin 12.5 g/dL (12.0-15.5) Hematocrit 38.7 % (36.0-47.0) Mean Corpuscular Volume 85 fL (79-100) Mean Corpuscular Hemoglobin 27 pg (25-35) Mean Corpuscular Hemoglobin Concent 32 g/dL (31-37) Red Cell Distribution Width 15.7 % (11.5-14.5) H Platelet Count 354 x10^3/uL (140-400) Neutrophils (%) (Auto) 61 % (31-73) Lymphocytes (%) (Auto) 29 % (24-48) Monocytes (%) (Auto) 8 % (0-9) Eosinophils (%) (Auto) 2 % (0-3) Basophils (%) (Auto) 1 % (0-3) Neutrophils # (Auto) 7.0 x10^3uL (1.8-7.7) Lymphocytes # (Auto) 3.3 x10^3/uL (1.0-4.8) Monocytes # (Auto) 0.9 x10^3/uL (0.0-1.1) Eosinophils # (Auto) 0.2 x10^3/uL (0.0-0.7) Basophils # (Auto) 0.1 x10^3/uL (0.0-0.2) Prothrombin Time 14.0 SEC (11.7-14.0) Prothrombin Time INR 1.1 (0.8-1.1) PTT 26 SEC (24-38) Sodium Level 140 mmol/L (136-145) Potassium Level 3.9 mmol/L (3.5-5.1) Chloride Level 103 mmol/L (98-107) Carbon Dioxide Level 26 mmol/L (21-32) Anion Gap 11 (6-14) Blood Urea Nitrogen 18 mg/dL (7-20) Creatinine 1.0 mg/dL (0.6-1.0) Estimated GFR (Cockcroft-Gault) 58.7 BUN/Creatinine Ratio 18 (6-20) Glucose Level 127 mg/dL (70-99) H Lactic Acid Level 1.4 mmol/L (0.4-2.0) Calcium Level 8.9 mg/dL (8.5-10.1) Magnesium Level 2.4 mg/dL (1.8-2.4) Total Bilirubin 0.3 mg/dL (0.2-1.0) Aspartate Amino Transferase (AST) 28 U/L (15-37) Alanine Aminotransferase (ALT) 41 U/L (14-59) Alkaline Phosphatase 78 U/L (46-116) Ammonia 20 mcmol/L (11-34) Creatine Kinase 187 U/L (26-192) Creatine Kinase MB (Mass) 1.5 ng/mL (0.0-3.6) Creatine Kinase MB Relative Index 0.8 % (0-4) Troponin I Quantitative < 0.017 ng/mL (0.000-0.055) Total Protein 7.5 g/dL (6.4-8.2) Albumin 3.4 g/dL (3.4-5.0) Albumin/Globulin Ratio 0.8 (1.0-1.7) L Ethyl Alcohol Level < 10 mg/dL (0-10) Laboratory Tests 04/26/18 05:32 Laboratory Tests 04/26/18 05:32 ([facility] T ) Lab Values Laboratory Tests Test 04/26/18 05:32 Sodium Level 140 mmol/L (136-145) Potassium Level 3.9 mmol/L (3.5-5.1) Chloride Level 103 mmol/L (98-107) Carbon Dioxide Level 26 mmol/L (21-32) Anion Gap 11 (6-14) Blood Urea Nitrogen 18 mg/dL (7-20) Creatinine 1.0 mg/dL (0.6-1.0) Estimated GFR (Cockcroft-Gault) 58.7 BUN/Creatinine Ratio 18 (6-20) Glucose Level 127 mg/dL (70-99) H Lactic Acid Level 1.4 mmol/L (0.4-2.0) Calcium Level 8.9 mg/dL (8.5-10.1) Magnesium Level 2.4 mg/dL (1.8-2.4) Total Bilirubin 0.3 mg/dL (0.2-1.0) Aspartate Amino Transferase (AST) 28 U/L (15-37) Alanine Aminotransferase (ALT) 41 U/L (14-59) Alkaline Phosphatase 78 U/L (46-116) Ammonia 20 mcmol/L (11-34) Creatine Kinase 187 U/L (26-192) Creatine Kinase MB (Mass) 1.5 ng/mL (0.0-3.6) Creatine Kinase MB Relative Index 0.8 % (0-4) Troponin I Quantitative < 0.017 ng/mL (0.000-0.055) Total Protein 7.5 g/dL (6.4-8.2) Albumin 3.4 g/dL (3.4-5.0) Albumin/Globulin Ratio 0.8 (1.0-1.7) L Ethyl Alcohol Level < 10 mg/dL (0-10) Laboratory Tests 04/26/18 05:32 (PEARL MALLORY DO) EKG EKG @0528 NSR at 66bpm NO ST elevation (PEARL MALLORY DO) Radiology/Procedures Radiology/Procedures [] (PEARL MALLORY DO) Course & Med Decision Making Course & Med Decision Making Pertinent Lab studies reviewed. (See chart for details) Patient is a 48-year-old female presents to the ED with change in sleep habits and abnormal mouth movements while trying to sleep 3 days after starting tizanidine. Labs pending. Alcohol less than 10. Symptoms appear to be xerostomia and possible extrapyramidal side effects. Will give Benadryl. Sign out given to Dr. Antonio for further evaluation and final disposition. Discussed current findings and plan with patient, who acknowledges understanding and agreement. (PEARL MALLORY DO) Course & Med Decision Making 0621: Transfer of care from Dr. Mallory. On my evaluation pt is anxious and requesting her home am medications. Labs pending. No tardive dyskinesia/ involuntary motor tics on my evaluation. Will give home Lisinopril and home Clonazepam and re-evaluate. 0710: Labs reassuring with no acute findings. Patient has continued to remain comfortable. On my multiple repeat evaluations patient is anxious but this is apparently her baseline. She was given her morning clonazepam. She has not had any further tie-dyed dyskinesia or involuntary muscle movements. I discussed with Dr. Aguirre the prescribing physician who will see her in his office and agreed with stopping the tizanidine. ER return precautions given. Patient verbalized understanding. All questions answered. (BRIGETTE ANTONIO DO) Dragon Disclaimer Dragon Disclaimer This electronic medical record was generated, in whole or in part, using a voice recognition dictation system. (PEARL MALLORY DO) Departure Departure Impression: Primary Impression: Extrapyramidal symptom Additional Impression: Anxiety Disposition: 01 HOME, SELF-CARE Condition: IMPROVED Referrals: CHARLES AGUIRRE MD (PCP) Patient Instructions: Anxiety and Panic Attacks Additional Instructions: Thank you for coming to [facility]. Please repeat the attached handouts. Please follow-up with your primary care physician. Return to the ER if your symptoms worsen or you have any other concerns. STOP TAKING THE TIZANIDINE. FOLLOW UP WITH DR. AGUIRRE IN THE NEXT 1-4 DAYS. Problem Qualifiers PEARL MALLORY DO Apr 26, 2018 06:05 BRIGETTE ANTONIO DO Apr 26, 2018 06:22
[2018-04-26 06:13] LABS: BASO # 0.1 x10^3/uL (0.0-0.2); BASO % 1 % (0-3); EOS # 0.2 x10^3/uL (0.0-0.7); EOS % 2 % (0-3); HEMATOCRIT 38.7 % (36.0-47.0); HEMOGLOBIN 12.5 g/dL (12.0-15.5); LYMPH # 3.3 x10^3/uL (1.0-4.8); LYMPH % 29 % (24-48); MEAN CORPUSCULAR HEMOGLOBIN 27 pg (25-35); MEAN CORPUSCULAR HGB CONC 32 g/dL (31-37); MEAN CORPUSCULAR VOLUME 85 fL (79-100); MONO # 0.9 x10^3/uL (0.0-1.1); MONO % 8 % (0-9); NEUT % 61 % (31-73); PLATELET COUNT 354 x10^3/uL (140-400); RED BLOOD COUNT 4.55 x10^6/uL (3.50-5.40); RED CELL DISTRIBUTION WIDTH 15.7 % (11.5-14.5); WHITE BLOOD COUNT 11.4 x10^3/uL (4.0-11.0)
[2018-04-26] MEDS ORDERED: clonazePAM 0.5 MG TABLET PO ONE (06:30)
[2018-04-26] MEDS ORDERED: LISINOPRIL 10 MG TABLET PO ONE (06:30)
[2018-04-26 06:47] LABS: BILIRUBIN,URINE SMALL (NEG); CLARITY,URINE CLOUDY; COLOR,URINE AMBER; NITRITE,URINE NEGATIVE (NEG); PH,URINE 5.5; PROTEIN,URINE 100 mg/dL (NEG-TRACE); UROBILINOGEN,URINE 0.2 mg/dL (0.2 mg/dL)
--- NOTE | 2018-04-26 06:53 | EKG ---
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
[2018-04-26 06:58] LABS: HYALINE CASTS, URINE OCCASIONAL /HPF; SQUAMOUS EPITHELIAL CELL,UR MOD /LPF
[2018-04-26 06:59] LABS: AMORPHOUS SEDIMENT,UR PRESENT /HPF; BACTERIA,URINE FEW /HPF (0-FEW); RBC,URINE 0 /HPF (0-2)
[2018-04-26 07:45] VITALS: BP 120/77
== END 2018-04-26 08:03 | disposition home or self-care (01) ==
LOC: ER 04:51
DX: G25.9 Extrapyramidal and movement disorder, unspecified (principal); G47.69 Other sleep related movement disorders; F41.9 Anxiety disorder, unspecified; I10 Essential (primary) hypertension; E11.9 Type 2 diabetes mellitus without complications
CPT/HCPCS: 36415; 80053; 81001; 82140; 82553; 83605; 83735; 84484; 85025; 85610; 85730; 87086; 93005; 96374; 99284; G0480; J1200; J7030

== ENCOUNTER 2018-06-19 21:40 | Emergency (ER) | payer OTHER ==
[~2018-06-19] VITALS: Ht 172.7 cm; Wt 140.6 kg
[2018-06-19 21:57] VITALS: BP 196/83
[2018-06-19] MEDS ORDERED: CLON1TAB PO (22:17)
--- NOTE | 2018-06-19 22:27 | PHYS DOC ---
Past Medical History Past Medical History: Anxiety, Diabetes-Type II, Hypertension, Other Additional Past Medical Histor: rheumatoid arthritis, ibs Past Surgical History: Cholecystectomy, Hysterectomy Alcohol Use: None Drug Use: None Adult General Chief Complaint Chief Complaint: ANXIETY/PANIC ATTACK HPI HPI Patient is a 48 year old F WITH ANXIETY. onset: chronic but got worse today had a refill for benzo to pharmacy but her doctor didnt fax over the confirmationn she tells me so hparmacy couldnt give it to her no cp or sob just feeling anxious and worried. Allergies Allergies Allergies Coded Allergies Type Severity Reaction Last Updated Verified No Known Drug Allergies 10/28/17 No Physical Exam Physical Exam Constitutional: Well developed, well nourished, no acute distress, non-toxic appearance. [] HENT: Normocephalic, atraumatic, bilateral external ears normal, oropharynx moist, no oral exudates, nose normal. [] Eyes: PERRLA, EOMI, conjunctiva normal, no discharge. [] Neck: Normal range of motion, no tenderness, supple, no stridor. [] Cardiovascular:Heart rate regular rhythm, no murmur [] Lungs & Thorax: Bilateral breath sounds clear to auscultation [] Abdomen: Bowel sounds normal, soft, no tenderness, no masses, no pulsatile masses. [] Skin: Warm, dry, no erythema, no rash. [] Back: No tenderness, no CVA tenderness. [] Extremities: No tenderness, no cyanosis, no clubbing, ROM intact, no edema. [] Neurologic: Alert and oriented X 3, normal motor function, normal sensory function, no focal deficits noted. [] Psychologic: Affect normal, judgement normal, mood mild anxiety Current Patient Data Vital Signs Vital Signs Date Time Temp Pulse Resp B/P (MAP) Pulse Ox O2 Delivery O2 Flow Rate FiO2 06/19/18 21:57 97.9 91 24 196/83 (120) 98 Room Air 97.9 EKG EKG [] Radiology/Procedures Radiology/Procedures [] Course & Med Decision Making Course & Med Decision Making Pertinent Labs and Imaging studies reviewed. (See chart for details) 48 yo with longstanding hx of anxiety. same today well appearing. overall calm and cooperative gave small amount of ativan number six. only. Dragon Disclaimer Dragon Disclaimer This electronic medical record was generated, in whole or in part, using a voice recognition dictation system. Departure Departure Impression: Primary Impression: Anxiety Disposition: 01 HOME, SELF-CARE Condition: STABLE Referrals: CHARLES RING MD (PCP) Patient Instructions: Anxiety and Panic Attacks, [id number] Scripts Clonazepam (KLONOPIN) 1 Mg Tablet 1 TAB PO BID, #6 TAB 0 Refills Prov: GAMAL RITTER MD 06/19/18 GAMAL RITTER MD Jun 19, 2018 22:27
== END 2018-06-19 22:24 | disposition home or self-care (01) ==
LOC: ER 21:40
DX: F41.9 Anxiety disorder, unspecified (principal); E11.9 Type 2 diabetes mellitus without complications; I10 Essential (primary) hypertension; M06.9 Rheumatoid arthritis, unspecified; Z90.49 Acquired absence of other specified parts of digestive tract; Z90.710 Acquired absence of both cervix and uterus
CPT/HCPCS: 99284

== ENCOUNTER 2019-06-15 15:29 | Emergency (ER) | payer OTHER ==
[~2019-06-15] VITALS: Ht 172.7 cm; Wt 152.0 kg
[~2019-06-15 15:29] MED LIST changes: +CLON1TAB PO; -CLON1TAB11 PO; +CLONAZEPAM1 MG PO; +MONT10TA49 PO; -MONT10TA9 PO
--- NOTE | 2019-06-15 15:57 | PHYS DOC ---
Past Medical History Past Medical History: Anxiety, Diabetes-Type II, Hypertension, Other Additional Past Medical Histor: rheumatoid arthritis, ibs Past Surgical History: Cholecystectomy, Hysterectomy Smoking Status: Never Smoker Alcohol Use: None Drug Use: None General Adult EDM: Chief Complaint: HYPERTENSION HPI: HPI: Patient is a 49 year old female who presents with Left chest pressure that is very dull in the last 3 days. Comes and goes. States she has anxiety and has been stressed with everything going on lately, her mom was just placed on hospice and her has been "acting like a child". Rates her discomfort at a 8. Review of Systems: Review of Systems: Cardiovascular: chest pain or denies edema. [] Heart Score: HEART Score for Chest Pain: HEART Score for Chest Pain Response (Comments) Value History Slighlty/Non-Suspicious 0 ECG Normal 0 Age >45 - < 65 1 Risk Factors >3 Risk Factors or Hx CAD 2 Troponin < Normal Limit 0 Total 3 Risk Factors: Risk Factors: DM, Current or recent (<one month) smoker, HTN, HLP, family history of CAD, obesity. Risk Scores: Score 0 - 3: 2.5% MACE over next 6 weeks - Discharge Home Score 4 - 6: 20.3% MACE over next 6 weeks - Admit for Clinical Observation Score 7 - 10: 72.7% MACE over next 6 weeks - Early Invasive Strategies Allergies: Allergies: Allergies Coded Allergies Type Severity Reaction Last Updated Verified No Known Drug Allergies 10/28/17 No Physical Exam: PE: Constitutional: Well developed, well nourished, no acute distress, non-toxic appearance. [] HENT: Normocephalic, atraumatic, bilateral external ears normal, oropharynx moist, no oral exudates, nose normal. [] Eyes: PERRLA, EOMI, conjunctiva normal, no discharge. [] Neck: Normal range of motion, no tenderness, supple, no stridor. [] Cardiovascular:Heart rate tachy regular rhythm, no murmur [] Lungs & Thorax: Bilateral breath sounds clear to auscultation [] Abdomen: Bowel sounds normal, soft, no tenderness, no masses, no pulsatile masses. [] Skin: Warm, dry, no erythema, no rash. [] Back: No tenderness, no CVA tenderness. [] Extremities: No tenderness, no cyanosis, no clubbing, ROM intact, no edema. [] Neurologic: Alert and oriented X 3, normal motor function, normal sensory function, no focal deficits noted. [] Psychologic: Affect normal, judgement normal, mood normal. [] EKG: EK and read by Dr. Dykes. Normal sinus rhythm and no STEMI. [] Radiology/Procedures: Radiology/Procedures: [] Impression: [facility] [address] [place] [address] IMAGING REPORT Signed PATIENT: JOANA LUBIN MACCOUNT: [id number] : 1970 LOCATION: ER AGE: 49 SEX: F EXAM STATUS: REG ER ORD. PHYSICIAN: GOOD JIMENES APRN REASON: chest pressure PROCEDURE: CHEST PA & LATERAL Chest, PA and Lateral: Technique: PA and lateral views of the chest were obtained. History: Chest pressure. Comparison: 10/28/2017. Findings: The heart and pulmonary vasculature appear within normal limits. The lungs are clear. The pleural margins are clear. Impression: No acute chest process is seen. Electronically signed by: Jeff Ash MD (06/15/2019 4:46 PM) [id number] DICTATED and SIGNED BY: JEFF ASH MD DATE: 06/15/191645 Course & Med Decision Making: Course & Med Decision Making Pertinent Labs and Imaging studies reviewed. (See chart for details) Denies SOA, abdominal pain, cough, fever, nausea, vomiting, diarrhea, dizziness, headache, vision changes, numbness or tingling. No extremity swelling. Ambulatory with steady gait. Lungs clear to auscultation in all lobes. Skin pink warm and dry. Speaks in full clear sentences. Patient has a history of htn of which she takes Lisinopril, anxiety, high cholesterol, diabetes, obesity, hysterectomy, rheumatoid arthritis, IBS, cholecystectomy. Patient took Clonazepam before coming and states that it helped. Patient is still rating her pain at a 8 even though she states it is better. 174: After Fentanyl given patient states her pain is only slightly better but still there. 1750: I have spoken to Dr. Aguirre who states that the patient can go home and to have her follow-up with him this coming week in the office. [] Keyon Disclaimer: [place] Disclaimer: This electronic medical record was generated, in whole or in part, using a voice recognition dictation system. Departure Departure Impression: Primary Impression: Chest pain Qualified Codes: R07.9 - Chest pain, unspecified Additional Impression: Anxiety Disposition: ADMITTED INPATIENT Condition: STABLE Referrals: CHARLES AGUIRRE MD (PCP) BALBIR BARNHART MD Patient Instructions: Anxiety and Panic Attacks, [id number], Chest Pain (Nonspecific), [id number] Additional Instructions: FOLLOW UP WITH PRIMARY CARE PROVIDER NEXT WEEK. IF PAIN WORSENS RETURN TO ED. CONTINUE TAKING ALL OF YOUR MEDICATIONS. GOOD JIMENES WOOD CABINET FINISHER Jun 15, 2019 15:57
[2019-06-15] MEDS ORDERED: ASPIRIN 325 MG TABLET PO ONE (16:00)
[2019-06-15 16:24] LABS: BASO # 0.1 x10^3/uL (0.0-0.2); BASO % 1 % (0-3); EOS # 0.4 x10^3/uL (0.0-0.7); EOS % 3 % (0-3); HEMATOCRIT 39.8 % (36.0-47.0); HEMOGLOBIN 13.3 g/dL (12.0-15.5); LYMPH # 2.9 x10^3/uL (1.0-4.8); LYMPH % 24 % (24-48); MEAN CORPUSCULAR HEMOGLOBIN 29 pg (25-35); MEAN CORPUSCULAR HGB CONC 33 g/dL (31-37); MEAN CORPUSCULAR VOLUME 86 fL (79-100); MONO # 0.9 x10^3/uL (0.0-1.1); MONO % 8 % (0-9); NEUT # 7.8 x10^3/uL (1.8-7.7); NEUT % 64 % (31-73); PLATELET COUNT 311 x10^3/uL (140-400); RED BLOOD COUNT 4.64 x10^6/uL (3.50-5.40); WHITE BLOOD COUNT 12.1 x10^3/uL (4.0-11.0)
[2019-06-15 16:26] LABS: BILIRUBIN,URINE SMALL (NEG); CLARITY,URINE CLEAR; COLOR,URINE YELLOW; NITRITE,URINE NEGATIVE (NEG); PROTEIN,URINE NEGATIVE (NEG-TRACE); UROBILINOGEN,URINE 0.2 mg/dL (0.2 mg/dL)
[2019-06-15 16:32] LABS: BARBITURATES NEG (NEG); BENZODIAZEPINES NEG (NEG); CANNABINOIDS NEG (NEG); COCAINE NEG (NEG); METHADONE NEG (NEG); OPIATES NEG (NEG); PHENCYCLIDINE NEG (NEG)
[2019-06-15 16:33] LABS: AMPHETAMINE/METHAMPHETAMINE NEG (NEG); HYALINE CASTS, URINE FEW /HPF; PROTHROMBIN TIME PATIENT 13.4 SEC (11.7-14.0); RBC,URINE OCC /HPF (0-2); SQUAMOUS EPITHELIAL CELL,UR FEW /LPF
[2019-06-15 16:34] LABS: BACTERIA,URINE 0 /HPF (0-FEW)
[2019-06-15 16:35] LABS: CALCIUM 9.1 mg/dL (8.5-10.1); CREATININE 1.1 mg/dL (0.6-1.0); GFR 52.4; POTASSIUM 3.7 mmol/L (3.5-5.1)
[2019-06-15 16:40] LABS: ALBUMIN 3.6 g/dL (3.4-5.0); ALBUMIN/GLOBULIN RATIO 0.9 (1.0-1.7); TOTAL BILIRUBIN 0.4 mg/dL (0.2-1.0); TOTAL PROTEIN 7.7 g/dL (6.4-8.2)
--- NOTE | 2019-06-15 16:48 | RAD ---
Chest, PA and Lateral: Technique: PA and lateral views of the chest were obtained. History: Chest pressure. Comparison: 10/28/2017. Findings: The heart and pulmonary vasculature appear within normal limits. The lungs are clear. The pleural margins are clear. Impression: No acute chest process is seen. Electronically signed by: Jeff Ash MD (06/15/2019 4:46 PM) [id number]
[2019-06-15] MEDS ORDERED: fentaNYL PF VIAL 100 MCG/2 ML VIAL IVP ONE (17:00)
[2019-06-15 17:55] VITALS: BP 115/58
--- NOTE | 2019-06-15 19:59 | EKG ---
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
== END 2019-06-15 18:23 | disposition other institution (70) ==
LOC: ER 15:29
DX: R07.89 Other chest pain (principal); F41.9 Anxiety disorder, unspecified; I10 Essential (primary) hypertension; E11.9 Type 2 diabetes mellitus without complications; K58.9 Irritable bowel syndrome, unspecified
CPT/HCPCS: 36415; 71046; 80053; 80307; 81001; 83690; 83880; 84484; 85025; 85610; 87086; 93005; 96374; 99285; J3010

== ENCOUNTER 2019-06-17 14:52 | Emergency (ER) | payer OTHER ==
[~2019-06-17] VITALS: Ht 172.7 cm; Wt 154.4 kg
[2019-06-17 15:02] VITALS: BP 163/88
--- NOTE | 2019-06-17 15:44 | PHYS DOC ---
Past Medical History Past Medical History: Anxiety, Asthma, High Cholesterol, Hypertension, Other Additional Past Medical Histor: rheumatoid arthritis, ibs Past Surgical History: Cholecystectomy, Hysterectomy Smoking Status: Never Smoker Alcohol Use: None Drug Use: None General Adult EDM: Chief Complaint: FEVER HPI: HPI: Patient is a 49 year old female who presents to the emergency department with concerns of fever. Patient states that she was seen at her primary care doctor's office for routine visit earlier and when she went home she felt hot so she checked her temperature. Patient states at home her temperature was 100.0 degrees. She took 1 tablet of Tylenol and upon arrival patient did not have a fever. She denies any cough, shortness of breath, fatigue, body aches, nausea, vomiting, diarrhea, abdominal pain, sore throat, or ear pain. Patient denies any known exposure to anyone with COVID or influenza. She currently denies any pain or complaints. Review of Systems: Review of Systems: Complete review of systems is normal unless otherwise documented in the HPI. Heart Score: Risk Factors: Risk Factors: DM, Current or recent (<one month) smoker, HTN, HLP, family history of CAD, obesity. Risk Scores: Score 0 - 3: 2.5% MACE over next 6 weeks - Discharge Home Score 4 - 6: 20.3% MACE over next 6 weeks - Admit for Clinical Observation Score 7 - 10: 72.7% MACE over next 6 weeks - Early Invasive Strategies Allergies: Allergies: Allergies Coded Allergies Type Severity Reaction Last Updated Verified No Known Drug Allergies 10/28/17 No Physical Exam: PE: Constitutional: Well developed, well nourished, no acute distress, non-toxic appearance, obese. [] HENT: Normocephalic, atraumatic, bilateral external ears normal, oropharynx moist, no oral exudates, nose normal. [] Eyes: PERRLA, EOMI, conjunctiva normal, no discharge. [] Neck: Normal range of motion, no tenderness, supple, no stridor. [] Cardiovascular:Heart rate regular rhythm, no murmur [] Lungs & Thorax: Bilateral breath sounds clear to auscultation, Respirations even and unlabored, no retractions, no respiratory distress [] Skin: Warm, dry, no erythema, no rash. [] Extremities: No cyanosis, ROM intact Neurologic: Alert and oriented X 3, no focal deficits noted. [] Psychologic: Affect normal, judgement normal, mood normal. [] Current Patient Data: Vital Signs: Vital Signs Date Time Temp Pulse Resp B/P (MAP) Pulse Ox O2 Delivery O2 Flow Rate FiO2 06/17/19 15:02 97.9 97 20 163/88 (113) 99 Room Air 97.9 EKG: EKG: [] Radiology/Procedures: Radiology/Procedures: [] Course & Med Decision Making: Course & Med Decision Making Pertinent Labs and Imaging studies reviewed. (See chart for details) [] Dragon Disclaimer: Dragon Disclaimer: This electronic medical record was generated, in whole or in part, using a voice recognition dictation system. Departure Departure Impression: Primary Impression: Feared condition not demonstrated Disposition: 01 HOME, SELF-CARE Condition: STABLE Referrals: CHARLES RING MD (PCP) Patient Instructions: Medical Screening Exam Additional Instructions: Your physical exam and vital signs were normal today. I recommend frequent hand washing and practicing social distancing guidelines to keep you healthy. Follow up with your primary care doctor as needed. Return to the ER if symptoms worsen. JOSELUIS REIS ELECTRONIC INSTALLER Jun 17, 2019 15:44
== END 2019-06-17 15:57 | disposition home or self-care (01) ==
LOC: ER 14:52
DX: Z71.1 Person with feared health complaint in whom no diagnosis is made (principal); J45.909 Unspecified asthma, uncomplicated; E78.00 Pure hypercholesterolemia, unspecified; I10 Essential (primary) hypertension; K58.9 Irritable bowel syndrome, unspecified
CPT/HCPCS: 99281

== ENCOUNTER 2020-11-11 15:43 | Emergency (ER) | payer OTHER ==
[~2020-11-11] VITALS: Ht 172.7 cm; Wt 146.0 kg
[~2020-11-11 15:43] MED LIST changes: +ESTR-113 PO; -ESTR1TAB15 PO; -LISI-338 PO; +LISI-517 PO
[2020-11-11 16:38] LABS: BASO # 0.1 x10^3/uL (0.0-0.2); BASO % 1 % (0-3); EOS # 0.3 x10^3/uL (0.0-0.7); EOS % 3 % (0-3); HEMATOCRIT 40.1 % (36.0-47.0); LYMPH # 2.4 x10^3/uL (1.0-4.8); LYMPH % 30 % (24-48); MEAN CORPUSCULAR HEMOGLOBIN 31 pg (25-35); MEAN CORPUSCULAR HGB CONC 35 g/dL (31-37); MEAN CORPUSCULAR VOLUME 89 fL (79-100); MONO # 0.7 x10^3/uL (0.0-1.1); MONO % 8 % (0-9); NEUT # 4.6 x10^3/uL (1.8-7.7); NEUT % 57 % (31-73); PLATELET COUNT 289 x10^3/uL (140-400); RED BLOOD COUNT 4.53 x10^6/uL (3.50-5.40); RED CELL DISTRIBUTION WIDTH 14.5 % (11.5-14.5); WHITE BLOOD COUNT 8.1 x10^3/uL (4.0-11.0)
--- NOTE | 2020-11-11 16:46 | EKG ---
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
--- NOTE | 2020-11-11 16:50 | RAD ---
XR CHEST 1V CLINICAL INDICATIONS: Chest pain COMPARISON: June 15, 2019. Findings: No acute lung infiltrate or pleural effusion or pulmonary edema or lung mass or pneumothora x is seen. The heart size, pulmonary vasculature, mediastinum and both pura are unremarkable. IMPRESSION: No acute radiographic abnormality is seen. Electronically signed by: Steven Hammond MD (11/11/2020 4:48 PM) [id number]
[2020-11-11 16:52] LABS: PREG TEST PT QUAL NEGATIVE (NEG)
[2020-11-11 16:58] LABS: CALCIUM 9.3 mg/dL (8.5-10.1); GFR 58.2; POTASSIUM 3.9 mmol/L (3.5-5.1)
[2020-11-11 17:02] LABS: ALBUMIN 3.6 g/dL (3.4-5.0); ALBUMIN/GLOBULIN RATIO 0.9 (1.0-1.7); MAGNESIUM 2.1 mg/dL (1.8-2.4); TOTAL BILIRUBIN 0.3 mg/dL (0.2-1.0); TOTAL PROTEIN 7.6 g/dL (6.4-8.2)
[2020-11-11 17:14] LABS: BILIRUBIN,URINE NEGATIVE (NEG); CLARITY,URINE CLEAR; COLOR,URINE YELLOW; NITRITE,URINE NEGATIVE (NEG); PROTEIN,URINE NEGATIVE (NEG-TRACE); UROBILINOGEN,URINE 0.2 mg/dL (0.2 mg/dL)
[2020-11-11 17:21] LABS: BACTERIA,URINE MANY /HPF (0-FEW); RBC,URINE 0 /HPF (0-2)
[2020-11-11 17:27] LABS: BARBITURATES NEG (NEG); BENZODIAZEPINES NEG (NEG); CANNABINOIDS NEG (NEG); COCAINE NEG (NEG); METHADONE NEG (NEG); OPIATES NEG (NEG); PHENCYCLIDINE NEG (NEG)
[2020-11-11 17:29] LABS: AMPHETAMINE/METHAMPHETAMINE NEG (NEG)
--- NOTE | 2020-11-11 17:52 | PHYS DOC ---
Past Medical History Past Medical History: Anxiety, Asthma, High Cholesterol, Hypertension, Other Additional Past Medical Histor: rheumatoid arthritis, ibs (DAMARIS MONROE DO) Past Surgical History: Cholecystectomy, Hysterectomy, Oophorectomy (DAMARIS MONROE DO) Smoking Status: Never Smoker Alcohol Use: None Drug Use: None (DAMARIS MONROE DO) General Adult EDM: Chief Complaint: CHEST PAIN HPI: HPI: 50-year-old female past medical history significant for rheumatoid arthritis, IBS, asthma, hypertension, hyperlipidemia, anxiety and depression, presents the ED with complaints of left-sided chest pain described as sore and pressure-like that started around 1 PM while patient was at her brother's house cleaning. Reports associated left shoulder pain stating " I have anxiety, lost my mother in March due to heart failure have been very overwhelmed lately with little sleep the last couple days." Reports she called Dr. Charles Aguirre per primary care physician who referred her to emergency department. Has a history of a stress test that was unremarkable [place] a few years ago. Denies any cocaine or methamphetamine abuse, not as a tobacco smoker. Denies any recent URI or Covid. No known history of Covid. No personal or family history of AAA, AAD, CTD ([place] or marfans), cardiac arrhythmias that require need for AICD, CAD, sudden or unexplainable (under 50 years of age or with exertion), or clotting disorders. (DAMARIS MONROE DO) Review of Systems: Review of Systems: Constitutional: Denies fever or chills. [] Eyes: Denies change in visual acuity. [] HENT: Denies nasal congestion or sore throat. [] Respiratory: Denies cough or shortness of breath. [] Cardiovascular: Denies syncope, hemoptysis or edema GI: Denies abdominal pain, nausea, vomiting, bloody stools or diarrhea. [] : Denies dysuria or hematuria Musculoskeletal: Denies back pain or flank pain Integument: Denies rash or diaphoresis Neurologic: Denies headache, focal weakness or sensory changes. [] Endocrine: Denies polyuria or polydipsia. [] Lymphatic: Denies swollen glands. [] Psychiatric: Denies depression or anxiety. [] (DAMARIS MONROE DO) Heart Score: C/O Chest Pain: Yes HEART Score for Chest Pain: HEART Score for Chest Pain Response (Comments) Value History Slighlty/Non-Suspicious 0 ECG Normal 0 Age >45 - < 65 1 Risk Factors 1 or 2 Risk Factors 1 Troponin < Normal Limit 0 Total 2 Risk Factors: Risk Factors: DM, Current or recent (<one month) smoker, HTN, HLP, family history of CAD, obesity. Risk Scores: Score 0 - 3: 2.5% MACE over next 6 weeks - Discharge Home Score 4 - 6: 20.3% MACE over next 6 weeks - Admit for Clinical Observation Score 7 - 10: 72.7% MACE over next 6 weeks - Early Invasive Strategies (DAMARIS MONROE DO) Allergies: Allergies: Allergies Coded Allergies Type Severity Reaction Last Updated Verified No Known Drug Allergies 10/28/17 No (DAMARIS MONROE DO) Physical Exam: PE: Constitutional: Well developed, well nourished, no acute distress, non-toxic appearance. HENT: Normocephalic, atraumatic, Eyes: EOMI, conjunctiva normal, no discharge. Neck: Normal range of motion, supple, Cardiovascular: S1/2 present, regular rhythm, left anterior upper chest wall reproducible tenderness Lungs & Thorax: Speaking in full sentences, bilateral equal chest rise, no tachypnea or increased work of breathing Abdomen: soft, no tenderness, Skin: Warm, dry, no erythema, no rash. [] Back: No tenderness, no CVA tenderness. [] Extremities: No tenderness, no cyanosis, no unilateral lower extremity edema Neurologic: Alert and oriented X 3, normal motor function, normal sensory function, no focal deficits noted. [] Psychologic: Affect normal, judgement normal, anxious mood (DAMARIS MONROE DO) Current Patient Data: Labs: Laboratory Tests Test 11/11/20 16:30 11/11/20 17:04 White Blood Count 8.1 x10^3/uL (4.0-11.0) Red Blood Count 4.53 x10^6/uL (3.50-5.40) Hemoglobin 14.0 g/dL (12.0-15.5) Hematocrit 40.1 % (36.0-47.0) Mean Corpuscular Volume 89 fL (79-100) Mean Corpuscular Hemoglobin 31 pg (25-35) Mean Corpuscular Hemoglobin Concent 35 g/dL (31-37) Red Cell Distribution Width 14.5 % (11.5-14.5) Platelet Count 289 x10^3/uL (140-400) Neutrophils (%) (Auto) 57 % (31-73) Lymphocytes (%) (Auto) 30 % (24-48) Monocytes (%) (Auto) 8 % (0-9) Eosinophils (%) (Auto) 3 % (0-3) Basophils (%) (Auto) 1 % (0-3) Neutrophils # (Auto) 4.6 x10^3/uL (1.8-7.7) Lymphocytes # (Auto) 2.4 x10^3/uL (1.0-4.8) Monocytes # (Auto) 0.7 x10^3/uL (0.0-1.1) Eosinophils # (Auto) 0.3 x10^3/uL (0.0-0.7) Basophils # (Auto) 0.1 x10^3/uL (0.0-0.2) Sodium Level 138 mmol/L (136-145) Potassium Level 3.9 mmol/L (3.5-5.1) Chloride Level 102 mmol/L (98-107) Carbon Dioxide Level 28 mmol/L (21-32) Anion Gap 8 (6-14) Blood Urea Nitrogen 16 mg/dL (7-20) Creatinine 1.0 mg/dL (0.6-1.0) Estimated GFR (Cockcroft-Gault) 58.2 BUN/Creatinine Ratio 16 (6-20) Glucose Level 108 mg/dL (70-99) H Calcium Level 9.3 mg/dL (8.5-10.1) Magnesium Level 2.1 mg/dL (1.8-2.4) Total Bilirubin 0.3 mg/dL (0.2-1.0) Aspartate Amino Transferase (AST) 25 U/L (15-37) Alanine Aminotransferase (ALT) 28 U/L (14-59) Alkaline Phosphatase 63 U/L (46-116) Troponin I Quantitative < 0.017 ng/mL (0.000-0.055) LW-Ywe-S-Type Natriuretic Peptide 102 pg/mL (0-124) Total Protein 7.6 g/dL (6.4-8.2) Albumin 3.6 g/dL (3.4-5.0) Albumin/Globulin Ratio 0.9 (1.0-1.7) L Lipase 156 U/L (73-393) Serum Test, Qualitative Negative (NEG) Urine Collection Type Void Urine Color Yellow Urine Clarity Clear Urine pH 7.0 (<5.0-8.0) Urine Specific [place] 1.010 (1.000-1.030) Urine Protein Negative mg/dL (NEG-TRACE) Urine Glucose (UA) Negative mg/dL (NEG) Urine Ketones (Stick) Negative mg/dL (NEG) Urine Blood Negative (NEG) Urine Nitrite Negative (NEG) Urine Bilirubin Negative (NEG) Urine Urobilinogen Dipstick 0.2 mg/dL (0.2 mg/dL) Urine Leukocyte Esterase Trace (NEG) Urine RBC 0 /HPF (0-2) Urine WBC 5-10 /HPF (0-4) Urine Squamous Epithelial Cells Few /LPF Urine Bacteria Many /HPF (0-FEW) Urine Mucus Slight /LPF Urine Opiates Screen Neg (NEG) Urine Methadone Screen Neg (NEG) Urine Barbiturates Neg (NEG) Urine Phencyclidine Screen Neg (NEG) Urine Amphetamine/Methamphetamine Neg (NEG) Urine Benzodiazepines Screen Neg (NEG) Urine Cocaine Screen Neg (NEG) Urine Cannabinoids Screen Neg (NEG) Urine Ethyl Alcohol Neg (NEG) Laboratory Tests 11/11/20 16:30 Laboratory Tests 11/11/20 16:30 Vital Signs: Vital Signs Date Time Temp Pulse Resp B/P (MAP) Pulse Ox O2 Delivery O2 Flow Rate FiO2 11/11/20 16:15 98.8 84 16 166/74 (104) 98 Room Air 98.8 [facility] EKG: EK Sinus rhythm 84 bpm, no axis deviation, normal intervals, no T wave inversions, no ST elevations or ST depressions 1728 sinus rhythm 74 bpm, no axis deviation, normal intervals, no T wave inversions, no ST elevations or ST depressions (IRENEDAMARIS DO) Radiology/Procedures: Radiology/Procedures: IMAGING REPORT Signed PATIENT: JOANA LUBIN MACCOUNT: [id number] : 1970 LOCATION: ER AGE: 50 SEX: F EXAM STATUS: PRE ER ORD. PHYSICIAN: DAMARIS MONROE DO REASON: cp PROCEDURE: PORTABLE CHEST 1V XR CHEST 1V CLINICAL INDICATIONS: Chest pain COMPARISON: June 15, 2019. Findings: No acute lung infiltrate or pleural effusion or pulmonary edema or lung mass or pneumothorax is seen. The heart size, pulmonary vasculature, mediastinum and both pura are unremarkable. IMPRESSION: No acute radiographic abnormality is seen. Electronically signed by: Harshal Hammond MD (11/11/2020 4:48 PM) [id number] DICTATED and SIGNED BY: HARSHAL HAMMOND MD DATE: 11/11/20 [id number] (DAMARIS MONROE DO) Course & Med Decision Making: Course & Med Decision Making Pertinent Labs and Imaging studies reviewed. (See chart for details) Concern for atypical chest pain with a heart score of 2, unremarkable EKG, first troponin negative. I discussed patient's presentation with her primary care physician Dr. Aguirre who reports patient suffers from significant anxiety. Xanax was given in the ED. Dr. Aguirre recommended a second troponin and if negative, have pt follow-up outpatient for nonemergent cardiology evaluation. Incidental finding of UTI, macrobid prescribed. At shift change I discussed case with Dr. Ayoub who will followup second troponin. (DAMARIS MONROE DO) Course & Med Decision Making Assumed care at shift change. Disposition pending repeat troponin. Plan if repeat troponin negative-- patient will be discharged home. 2000hrs-- Repeat troponin negative. Discussed results with patient. DC to follow up with PCP. (TOO AYOUB DO) Dragon Disclaimer: [place] Disclaimer: This electronic medical record was generated, in whole or in part, using a voice recognition dictation system. (DAMARIS MONROE DO) Departure Departure Impression: Primary Impression: Chest pain Additional Impressions: Anxiety UTI (urinary tract infection) Disposition: HOME / SELF CARE / HOMELESS Condition: STABLE Referrals: CHARLES AGUIRRE MD (PCP) Follow-up with your primary care physician in 24 to 48 hours OR FOLLOW UP WITH FAMILY MEDICINE: [address], [address] [place] [address] Patient Instructions: Anxiety and Panic Attacks, Chest Pain (Nonspecific), Urinary Tract Infection Additional Instructions: FOLLOW UP WITH CARDIOLOGY: FOR DEFINITIVE MANAGEMENT [facility] [address] [address] Scripts Nitrofurantoin Monohyd/M-Cryst (MACROBID 100 MG CAPSULE) 100 Mg Capsule 1 CAP PO BID for 7 Days, #14 CAP 0 Refills Prov: DAMARIS MONROE DO 11/11/20 DAMARIS MONROE DO Nov 11, 2020 17:52 TOO AYOUB I DO Nov 11, 2020 20:07
[2020-11-11] MEDS ORDERED: ALPRAZolam 0.25 MG TABLET PO ONE (18:45)
--- NOTE | 2020-11-11 19:38 | EKG ---
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
[2020-11-11] MEDS ORDERED: NITR100C62 PO (19:40)
[2020-11-11 19:45] VITALS: BP 128/73
== END 2020-11-11 20:55 | disposition home or self-care (01) ==
LOC: ER 15:43
DX: R07.89 Other chest pain (principal); F41.9 Anxiety disorder, unspecified; N39.0 Urinary tract infection, site not specified; J45.909 Unspecified asthma, uncomplicated; I10 Essential (primary) hypertension; E78.00 Pure hypercholesterolemia, unspecified; Z90.89 Acquired absence of other organs; Z90.49 Acquired absence of other specified parts of digestive tract; K58.9 Irritable bowel syndrome, unspecified
CPT/HCPCS: 36415; 71045; 80053; 80307; 81001; 83690; 83735; 83880; 84484; 84703; 85025; 87086; 93005; 99285-25

== ENCOUNTER 2021-03-07 18:37 | Emergency (ER) | payer OTHER ==
[~2021-03-07] VITALS: Ht 172.7 cm; Wt 145.0 kg
[~2021-03-07 18:37] MED LIST changes: -LISI-517 PO; +LISI5TAB15 PO; +NITR100C62 PO
[2021-03-07 19:25] VITALS: BP 118/90
[2021-03-07] MEDS ORDERED: DEXAMETHASONE 4 MG TABLET PO ONE (19:30)
--- NOTE | 2021-03-07 19:34 | PHYS DOC ---
Past Medical History Past Medical History: Anxiety, Asthma, High Cholesterol, Hypertension, Other Additional Past Medical Histor: rheumatoid arthritis, ibs Past Surgical History: Cholecystectomy, Hysterectomy, Oophorectomy Smoking Status: Never Smoker Alcohol Use: None Drug Use: None General Adult EDM: Chief Complaint: SORE THROAT HPI: HPI: Patient is a 51 year old female who presents with a cough for the last 7 days. She is now hoarse. She states the cough keeps her up at night. She states that her doctor sent her in to be checked for COVID. She denies shortness of breath, chest pain, abdominal pain, nausea, vomiting, diarrhea, dizziness, headache, syncope, numbness or tingling, focal weakness, urinary symptoms, back pain, fever. She has a history of anxiety, asthma, high cholesterol, hypertension, rheumatoid arthritis, IBS, cholecystectomy, hysterectomy. Review of Systems: Review of Systems: Constitutional: Denies fever or chills. [] Eyes: Denies change in visual acuity. [] HENT: Denies nasal congestion or sore throat. [] Respiratory: + cough or denies shortness of breath. [] Cardiovascular: Denies chest pain or edema. [] GI: Denies abdominal pain, nausea, vomiting, bloody stools or diarrhea. [] : Denies dysuria. [] Musculoskeletal: Denies back pain or joint pain. +bodyaches with cough[] Integument: Denies rash. [] Neurologic: Denies headache, focal weakness or sensory changes. [] Endocrine: Denies polyuria or polydipsia. [] Lymphatic: Denies swollen glands. [] Psychiatric: Denies depression or anxiety. [] Heart Score: C/O Chest Pain: No Allergies: Allergies: Allergies Coded Allergies Type Severity Reaction Last Updated Verified No Known Drug Allergies 10/28/17 No Physical Exam: PE: Constitutional: Well developed, well nourished, no acute distress, non-toxic appearance. [] HENT: Normocephalic, atraumatic, bilateral external ears normal, oropharynx moist, no oral exudates, nose normal. hoarse voice[] Eyes: PERRLA, EOMI, conjunctiva normal, no discharge. [] Neck: Normal range of motion, no tenderness, supple, no stridor. [] Cardiovascular:Heart rate regular rhythm, no murmur [] Lungs & Thorax: Bilateral breath sounds clear to auscultation [] Abdomen: Bowel sounds normal, soft, no tenderness, no masses, no pulsatile masses. [] Skin: Warm, dry, no erythema, no rash. [] Back: No tenderness, no CVA tenderness. [] Extremities: No tenderness, no cyanosis, no clubbing, ROM intact, no edema. [] Neurologic: Alert and oriented X 3, normal motor function, normal sensory function, no focal deficits noted. [] Psychologic: Affect normal, judgement normal, mood normal. [] EKG: EKG: [] Radiology/Procedures: Radiology/Procedures: [] Impression: [facility] [address] [place], [place] [id number] IMAGING REPORT Signed PATIENT: JOANA LUBIN MACCOUNT: [id number] : 1970 LOCATION: ER AGE: 51 SEX: F EXAM STATUS: REG ER ORD. PHYSICIAN: GOOD JIMENES APRN REASON: cough PROCEDURE: PORTABLE CHEST 1V EXAM: XR CHEST 1V 03/07/2021 7:54 PM CLINICAL INDICATION: Cough COMPARISON: Chest radiograph 11/11/2020 TECHNIQUE: AP semiupright view of the chest FINDINGS: The cardiac silhouette is prominent, unchanged. Lungs are adequately expanded. There are mild interstitial opacities in the lung bases. No pleural effusion or pneumothorax. No acute osseous abnormality. IMPRESSION: Mild interstitial opacities in the lung bases, likely atelectasis. Pneumonia not excluded. Electronically signed by: Janine Burch MD (03/07/2021 8:48 PM) [id number] DICTATED and SIGNED BY: JANINE BURCH MD DATE: 03/07/21 [id number] 0 Course & Med Decision Making: Course & Med Decision Making Pertinent Labs and Imaging studies reviewed. (See chart for details) COVID-19 CRITERIA: The patient was evaluated during the global COVID-19 pandemic, and that diagnosis was suspected/considered upon their initial presentation. Their evaluation, treatment and testing was consistent with current guidelines for patients who present with complaints or symptoms that may be related to COVID-19. See HPI. Alert and oriented x4. Ambulatory steady gait. Speaks in full clear sentences. Lungs are clear to auscultation all lobes. Patient has a dry cough. Hoarse voice. Skin pink warm and dry. Afebrile. She is not hypoxic. No accessory muscle use. She denies having to use her inhaler more often. She denies any shortness of breath or chest pain. COVID positive. Because of severe cough and asthma history I gave a one-time dose of dexamethasone. Xray read by Dr Sauer as Covid pneumonia given history and physical exam. No other obvious acute findings. [] Dragon Disclaimer: Dragon Disclaimer: This electronic medical record was generated, in whole or in part, using a voice recognition dictation system. COVID-19 Patient Risks: Age 65 or older: No Sign of co-morbidity: Yes Exp to person + for COVID: No Exp to PUI: No Travel from affected area: No Lower respiratory symptoms: Yes Fever: No Other: Yes (sore throat) PPE Use: Full PPE with N95 mask or PAPR: Yes Departure Departure Impression: Primary Impression: Pneumonia due to COVID-19 virus Disposition: 01 HOME / SELF CARE / HOMELESS Condition: STABLE Referrals: CHARLES RING MD (PCP) Patient Instructions: Cough, Adult, Pneumonia, Adult Additional Instructions: Follow up with Primary care provider. Drink plenty of fluids. Give Tylenol and Ibuprofen for pain or fever. If you begin having severe shortness or breath, severe chest pain, or can not keep down fluids return tot he ED. Scripts Albuterol Sulfate (PROAIR HFA INHALER) 8.5 Gm Hfa.aer.ad 1-2 PUFF INH PRN Q6HRS PRN for SHORTNESS OF BREATH, #1 EACH 0 Refills Prov: GOOD JIMENES PROPOSAL MANAGER 03/07/21 GOOD JIMENES PROPOSAL MANAGER Mar 07, 2021 19:34
[2021-03-07] MEDS ORDERED: ALBU2.5V8 INH (20:22)
--- NOTE | 2021-03-07 20:50 | RAD ---
EXAM: XR CHEST 1V 03/07/2021 7:54 PM CLINICAL INDICATION: Cough COMPARISON: Chest radiograph 11/11/2020 TECHNIQUE: AP semiupright view of the chest FINDINGS: The cardiac silhouette is prominent, unchanged. Lungs are adequately expanded. There are m ild interstitial opacities in the lung bases. No pleural effusion or pneumothorax. No acute osseous a bnormality. IMPRESSION: Mild interstitial opacities in the lung bases, likely atelectasis. Pneumonia not exclude d. Electronically signed by: Janine Burch MD (03/07/2021 8:48 PM) [id number]
== END 2021-03-07 21:09 | disposition home or self-care (01) ==
LOC: ER 18:37
DX: U07.1 COVID-19 (principal); J18.9 Pneumonia, unspecified organism; J45.909 Unspecified asthma, uncomplicated; E78.00 Pure hypercholesterolemia, unspecified; I10 Essential (primary) hypertension
CPT/HCPCS: 71045; 87426; 99284

== ENCOUNTER 2021-03-13 18:19 | Emergency (ER) | payer OTHER ==
[~2021-03-13] VITALS: Ht 172.7 cm; Wt 145.5 kg
[~2021-03-13 18:19] MED LIST changes: +ALBU2.5V8 INH
--- NOTE | 2021-03-13 18:38 | PHYS DOC ---
Past Medical History Past Medical History: Anxiety, Asthma, High Cholesterol, Hypertension, Other Additional Past Medical Histor: rheumatoid arthritis, ibs Past Surgical History: Cholecystectomy, Hysterectomy, Oophorectomy Smoking Status: Never Smoker Alcohol Use: None Drug Use: None Adult General Chief Complaint Chief Complaint: SHORTNESS OF BREATH HPI HPI The patient is a 51-year-old female with a history of hypertension, hyperlipidemia and asthma. She is fully vaccinated against COVID with the Duda vaccination. She presents for evaluation of mild shortness of breath and nonproductive cough in association with about 6 days of COVID symptoms (confirmed positive by an outside test). She endorses some mild nonpleuritic nonexertional chest tightness at times over the past couple of days. She denies fevers, vomiting, sore throat, meghan chest pain of any kind, abdominal pain, flank pain, back pain, dysuria, hematuria, polyuria or oliguria, changes in bowel habits, pain or swelling to arms or legs. Patient is alert and pleasantly and appropriately interactive and in no acute distress with completely appropriate vital signs including oxygenation upon initial evaluation here in the emergency department. She is speaking comfortably in full sentences in a normal tone of voice and is not tachypneic. Review of Systems Review of Systems A 12 point review of systems was completed and was negative except where noted in HPI above. Current Medications Current Medications Current Medications Medications (Trade) Dose Ordered Sig/Fortino Start Time Stop Time Status Last Admin Dose Admin Acetaminophen (Tylenol) 1,000 mg 1X ONCE 03/13/21 19:00 03/13/21 19:01 DC 03/13/21 18:56 1,000 MG Benzonatate (Tessalon Perle) 200 mg 1X ONCE 03/13/21 19:00 03/13/21 19:01 DC 03/13/21 18:55 200 MG Info (CONTRAST GIVEN -- Rx MONITORING) 1 each PRN DAILY PRN 03/13/21 20:00 03/15/21 19:59 Iohexol (Omnipaque 350 Mg/ml) 100 ml 1X ONCE 03/13/21 19:45 03/13/21 19:53 DC 03/13/21 20:43 100 ML Ringer's Solution 1,000 ml @ 999 mls/hr 1X ONCE 03/13/21 19:00 03/13/21 20:00 DC 03/13/21 19:07 999 MLS/HR Allergies Allergies Allergies Coded Allergies Type Severity Reaction Last Updated Verified No Known Drug Allergies 10/28/17 No Physical Exam Physical Exam 51-year-old female appearing nontoxic and in no acute distress. Head is normocephalic and atraumatic. Neck is supple and nontender. Oropharynx is moist. Lungs are clear to auscultation at all stations. There is a normal S1 and S2 without rubs or gallops and capillary refill is appropriate, less than 2 seconds globally. Abdomen is soft, nontender and nondistended. Skin is warm and dry without cyanosis, clubbing or edema. Psychiatrically, the patient demonstrates appropriate mood and affect and is alert. Evaluation of the extremities reveals BUEs and BUEs neurovascular intact distally with strength out of 5, sensation intact light touch in all nerve distributions, radial, DP and PT pulses 2+ and equal bilaterally, capillary refill less than 2 seconds, hands and feet warm and well-perfused. No dependent peripheral edema distally. No calf tenderness or swelling bilaterally. Homans test is negative bilaterally. Current Patient Data Vital Signs Vital Signs Date Time Temp Pulse Resp B/P (MAP) Pulse Ox O2 Delivery O2 Flow Rate FiO2 03/13/21 18:32 99.8 95 18 146/68 (94) 96 Room Air 99.8 Lab Values Laboratory Tests Test 03/13/21 19:05 White Blood Count 10.8 x10^3/uL (4.0-11.0) Red Blood Count 4.46 x10^6/uL (3.50-5.40) Hemoglobin 13.4 g/dL (12.0-15.5) Hematocrit 39.1 % (36.0-47.0) Mean Corpuscular Volume 88 fL (79-100) Mean Corpuscular Hemoglobin 30 pg (25-35) Mean Corpuscular Hemoglobin Concent 34 g/dL (31-37) Red Cell Distribution Width 14.2 % (11.5-14.5) Platelet Count 473 x10^3/uL (140-400) H Neutrophils (%) (Auto) 63 % (31-73) Lymphocytes (%) (Auto) 26 % (24-48) Monocytes (%) (Auto) 9 % (0-9) Eosinophils (%) (Auto) 1 % (0-3) Basophils (%) (Auto) 1 % (0-3) Neutrophils # (Auto) 6.8 x10^3/uL (1.8-7.7) Lymphocytes # (Auto) 2.8 x10^3/uL (1.0-4.8) Monocytes # (Auto) 1.0 x10^3/uL (0.0-1.1) Eosinophils # (Auto) 0.1 x10^3/uL (0.0-0.7) Basophils # (Auto) 0.1 x10^3/uL (0.0-0.2) D-Dimer (Clementina) 1.12 ug/mlFEU (0.00-0.50) H Sodium Level 142 mmol/L (136-145) Potassium Level 3.8 mmol/L (3.5-5.1) Chloride Level 103 mmol/L (98-107) Carbon Dioxide Level 26 mmol/L (21-32) Anion Gap 13 (6-14) Blood Urea Nitrogen 14 mg/dL (7-20) Creatinine 0.9 mg/dL (0.6-1.0) Estimated GFR (Cockcroft-Gault) 65.5 BUN/Creatinine Ratio 16 (6-20) Glucose Level 106 mg/dL (70-99) H Calcium Level 8.6 mg/dL (8.5-10.1) Total Bilirubin 0.3 mg/dL (0.2-1.0) Aspartate Amino Transferase (AST) 17 U/L (15-37) Alanine Aminotransferase (ALT) 42 U/L (14-59) Alkaline Phosphatase 50 U/L (46-116) Troponin I High Sensitivity 10 ng/L (4-50) PW-Vok-W-Type Natriuretic Peptide 136 pg/mL (0-124) H Total Protein 7.3 g/dL (6.4-8.2) Albumin 3.3 g/dL (3.4-5.0) L Albumin/Globulin Ratio 0.8 (1.0-1.7) L Laboratory Tests 03/13/21 19:05 Laboratory Tests 03/13/21 19:05 EKG EKG Sinus rhythm, rate 83, no acute ST elevation or depression, GA 168, QRS 96, QTc 412, EP interpretation. Nonischemic tracing, intervals appropriate. Baseline artifact limits interpretation modestly. Radiology/Procedures Radiology/Procedures Exam: CT of chest with contrast INDICATION: Elevated d-dimer, short of air TECHNIQUE: Sequential axial images through the chest obtained following the administration of 99 mL of Isovue-370 IV contrast. Sagittal and coronal reformatted images were reconstructed from the axial data and reviewed. 3-D reformatted images were reconstructed from the axial data and reviewed. Exposure: One or more of the following in the visualized dose reduction techniques were utilized for this examination: 1. Automated exposure control 2. Adjustment of the MA and/or KV according to patient size 3. Use of iterative of reconstructive technique Comparisons: Chest x-ray same day FINDINGS: Visualized portions of the thyroid are unremarkable. No enlargement isn't lymph nodes are identified. Heart size is normal. No pericardial effusion. Thoracic is normal course and caliber. Pulmonary artery is not enlarged. No pulmonary embolus identified within the main, lobar or segmental pulmonary arteries. Airways are patent. Tree-in-bud ground glass opacity noted at the right upper l obe. Patchy consolidative changes in the right lower lobe. No pneumothorax. No pleural effusion or thickening. Visualized upper abdomen is unremarkable. No suspicious osseous lesions or acute fractures. IMPRESSION: 1. No pulmonary embolus identified within the main, lobar or segmental pulmonary arteries. 2. Patchy tree-in-bud nodularity noted in the right upper lobe with patchy areas of consolidation and ground glass opacity in the right lung. This is favored to be infectious or inflammatory in etiology. Electronically signed by: Laura Mcbride MD (03/13/2021 9:07 PM) [facility] DICTATED and SIGNED BY: LAURA MCBRIDE MD DATE: 03/13/21 [id number] 0 Course & Med Decision Making Course & Med Decision Making Labs and imaging entirely nonacute aside from elevated D-dimer without evidence of PE on CT angiography of the chest; evidence of mild COVID pneumonia is, however, seen on advanced imaging. Patient is oxygenating very well and is completely nontoxic with reassuring vital signs and exam. She has had both doses of the Pfizer vaccine which is likely why she is not acutely ill. Reassurance provided. Will discharge home to continue good supportive care with szqe-bru-flosnna cough and cold medication, oral fluids and close follow-up with primary. We will prescribe some benzonatate per the patient's request. She is to purchase a pulse oximeter to monitor her oxygen levels at home. She understands that if she feels worse instead of better or develops other new symptoms of concern that she should return to the emergency department immediately for reevaluation. All questions are answered. Keyon Disclaimer Keyon Disclaimer This electronic medical record was generated, in whole or in part, using a voice recognition dictation system. Departure Departure Impression: Primary Impression: Pneumonia due to COVID-19 virus Disposition: 01 HOME / SELF CARE / HOMELESS Condition: IMPROVED Referrals: CHARLES RING MD (PCP) Additional Instructions: Follow-up very closely with your primary care doctor in the office in the next 2 to 4 days for a reevaluation of your symptoms and a discussion of next best steps in care. Drink plenty of fluids and get plenty of rest. Take the [id number] cold and flu medications you have at home as per the instructions on the package. For cough you may take a benzonatate pill every 8 hours as needed. Purchase a portable pulse oximeter to monitor your oxygen levels at home as we discussed; your oxygen level should be 90% or above consistently. Return to the emergency department right away for worsening symptoms of any kind or with any other new symptoms of concern. You have been tested for or diagnosed with COVID-19. It is an infection caused by a new type of coronavirus. COVID-19 will cause cold-like or mild flu symptoms in most. It can cause more severe symptoms like problems breathing in some. There is no treatment for COVID-19. The body will clear the infection over time. Self-care will help to ease discomfort. Steps to Take: Self-Care Rest as needed. Healthy habits may help you feel better. Steps include: Choose healthy foods including fruits and vegetables. Drink water throughout the day. Get plenty of sleep each night. If you smoke, try to quit. It may ease breathing. Avoid alcohol. Keep Others Healthy The virus can spread to others. Droplets are released every time you sneeze or cough. The droplets can get into the mouth, nose, or eyes of people near you and lead to infection. To lower the chances of spreading COVID-19 to others: Stay at home until your doctor has said it is safe to leave. If you tested positive this will mean staying isolated until both of the following are true: At least 7 days have passed since the start of illness. You are free of fever for at least 72 hours without the use of medicine. During this time: - Avoid public areas, events, or transportation. Do not return to work or school until your doctor has said it is safe to do so. - Call ahead if you need to go to a medical center. Let them know you may have COVID-19. It will help them guide you where to go. They may also ask you to wear a facemask when you come to the office. - If you call for emergency medical services, let them know you may have COVID- 19. While at home: - Try to avoid close contact with others. Stay about 6 feet away. - If possible, spend most of your time in a separate room from others. - Use a face mask if you will be in close contact with others such as sharing a room or vehicle. - Have someone wipe down common surfaces in the home. Use household jacquard loom fixer every day on areas like doorknobs, counters, or sinks. - Cough or sneeze into a tissue. Throw the tissue away right after use. If a tissue is not available, cough or sneeze into your elbow. - Wash your hands often. Wash them after sneezing or coughing. Use soap and water and wash for at least 20 seconds. Alcohol based hand cleaner signs can be used if soap and water is not available. - Do not prepare food for others. Avoid sharing personal items like forks, spoons, or toothbrushes. - Avoid close contact with pets while you are sick. There is no evidence of the virus passing to pets. This is a safety step until more is known about this virus. Isolation can be frustrating. Social interaction can help. Keep in touch with friends and family through phone and tech options. You can still interact with others in your home, just keep a safe distance of about 6 feet. Follow-up: Your doctors office will check in with you to see if there are any changes in your health. You may be asked to keep track of symptoms to share with them. They will also let you know when you are clear to be in public again. Problems to Look Out For: Contact your doctor if your recovery is not going as you expect. Get emergency care if you have problems such as: - Trouble breathing - Nonstop chest pain or pressure - Changes in awareness, confusion, or problems waking - Lips or face have bluish color - Worsening of symptoms If you think you have an emergency, call for emergency medical services right away. [facility] [facility] Benzonatate (BENZONATATE) 100 Mg Capsule 1 CAP PO TID PRN for COUGH, #21 CAP Prov: VANE STANLEY MD 03/13/21 VANE STANLEY MD Mar 13, 2021 18:38
[2021-03-13] MEDS ORDERED: IV RINGERS,LACTATED 1000ML 1,000 ML IV ONE (19:00)
[2021-03-13] MEDS ORDERED: BENZONATATE 100 MG CAPSULE. PO ONE (19:00)
[2021-03-13] MEDS ORDERED: ACETAMINOPHEN 500 MG TABLET PO ONE (19:00)
[2021-03-13 19:20] LABS: BASO # 0.1 x10^3/uL (0.0-0.2); BASO % 1 % (0-3); EOS # 0.1 x10^3/uL (0.0-0.7); EOS % 1 % (0-3); HEMATOCRIT 39.1 % (36.0-47.0); HEMOGLOBIN 13.4 g/dL (12.0-15.5); LYMPH # 2.8 x10^3/uL (1.0-4.8); LYMPH % 26 % (24-48); MEAN CORPUSCULAR HEMOGLOBIN 30 pg (25-35); MEAN CORPUSCULAR HGB CONC 34 g/dL (31-37); MEAN CORPUSCULAR VOLUME 88 fL (79-100); MONO % 9 % (0-9); NEUT # 6.8 x10^3/uL (1.8-7.7); NEUT % 63 % (31-73); PLATELET COUNT 473 x10^3/uL (140-400); RED BLOOD COUNT 4.46 x10^6/uL (3.50-5.40); RED CELL DISTRIBUTION WIDTH 14.2 % (11.5-14.5); WHITE BLOOD COUNT 10.8 x10^3/uL (4.0-11.0)
[2021-03-13 19:29] LABS: CALCIUM 8.6 mg/dL (8.5-10.1); CREATININE 0.9 mg/dL (0.6-1.0); GFR 65.5; POTASSIUM 3.8 mmol/L (3.5-5.1)
[2021-03-13 19:35] LABS: ALBUMIN 3.3 g/dL (3.4-5.0); ALBUMIN/GLOBULIN RATIO 0.8 (1.0-1.7); TOTAL BILIRUBIN 0.3 mg/dL (0.2-1.0); TOTAL PROTEIN 7.3 g/dL (6.4-8.2)
--- NOTE | 2021-03-13 19:43 | RAD ---
EXAM: AP View of the chest DATE: 03/13/2021 6:34 PM INDICATION: Reason: SOA / Spl. Instructions: / History: COMPARISON: 03/07/2021 FINDINGS: The heart is not enlarged. Mediastinal and hilar contours are normal. Patchy opacities right midlung possibly atelectasis or developing consolidation, improved compared to 03/07/2021. No pleural effusion or pneumothorax. IMPRESSION: Improved right lung patchy opacities, however imaging follow-up to resolution is recommended. Electronically signed by: Pro Vincent MD (03/13/2021 7:41 PM) CLAUDETTE
[2021-03-13] MEDS ORDERED: IOHEXOL 350 MG/ML 100 ML VIAL. IV ONE (19:45)
[2021-03-13] MEDS ORDERED: CONTRAST GIVEN. MC PRN (20:00)
--- NOTE | 2021-03-13 21:10 | RAD ---
Exam: CT of chest with contrast INDICATION: Elevated d-dimer, short of air TECHNIQUE: Sequential axial images through the chest obtained following the administration of 99 mL o f Isovue-370 IV contrast. Sagittal and coronal reformatted images were reconstructed from the axial d comfort and reviewed. 3-D reformatted images were reconstructed from the axial data and reviewed. Exposure: One or more of the following in the visualized dose reduction techniques were utilized for this examination: 1. Automated exposure control 2. Adjustment of the MA and/or KV according to patient size 3. Use of iterative of reconstructive technique Comparisons: Chest x-ray same day FINDINGS: Visualized portions of the thyroid are unremarkable. No enlargement isn't lymph nodes are identified. Heart size is normal. No pericardial effusion. Thoracic is normal course and caliber. Pulmonary arter y is not enlarged. No pulmonary embolus identified within the main, lobar or segmental pulmonary serena rhiannon. Airways are patent. Tree-in-bud ground glass opacity noted at the right upper lobe. Patchy consolidat italo changes in the right lower lobe. No pneumothorax. No pleural effusion or thickening. Visualized upper abdomen is unremarkable. No suspicious osseous lesions or acute fractures. IMPRESSION: 1. No pulmonary embolus identified within the main, lobar or segmental pulmonary arteries. 2. Patchy tree-in-bud nodularity noted in the right upper lobe with patchy areas of consolidation an d ground glass opacity in the right lung. This is favored to be infectious or inflammatory in etiolog y. Electronically signed by: Laura Martinez MD (03/13/2021 9:07 PM) [facility]
[2021-03-13] MEDS ORDERED: BENZ-8 PO (21:38)
[2021-03-13 21:44] VITALS: BP 148/77
--- NOTE | 2021-03-14 02:01 | EKG ---
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
== END 2021-03-13 21:53 | disposition home or self-care (01) ==
LOC: ER 18:19
DX: U07.1 COVID-19 (principal); J12.82 Pneumonia due to coronavirus disease 2019; I10 Essential (primary) hypertension; E78.5 Hyperlipidemia, unspecified; J45.909 Unspecified asthma, uncomplicated; F41.9 Anxiety disorder, unspecified
CPT/HCPCS: 36415; 71045; 71275; 80053; 83880; 84484; 85025; 85379; 93005; 96360; 96361; 99285; J7120; Q9967

== ENCOUNTER 2021-03-16 16:38 | Emergency (ER) | payer OTHER ==
[~2021-03-16] VITALS: Ht 170.2 cm; Wt 120.0 kg
[~2021-03-16 16:38] MED LIST changes: +BENZ-8 PO
[2021-03-16 16:53] VITALS: BP 138/82
--- NOTE | 2021-03-16 17:21 | RAD ---
Exam: Chest one view INDICATION: Short of air TECHNIQUE: Frontal view of the chest Comparisons: 03/13/2021 FINDINGS: The cardiomediastinal silhouette and pulmonary vessels are within normal limits. The lung and pleural spaces are clear. IMPRESSION: No acute cardiopulmonary process. Electronically signed by: Laura Martinez MD (03/16/2021 5:18 PM) MAHAD
--- NOTE | 2021-03-16 17:30 | PHYS DOC ---
Past Medical History Past Medical History: Anxiety, Asthma, High Cholesterol, Hypertension, Other Additional Past Medical Histor: rheumatoid arthritis, ibs Past Surgical History: No Surgical History Smoking Status: Never Smoker Alcohol Use: None Drug Use: None General Adult EDM: Chief Complaint: SHORTNESS OF BREATH HPI: HPI: Patient is a 51-year-old female who presents to the emergency department with a nonproductive cough, chest congestion, shortness of breath, intermittent fever since March 07. Patient reports that she has been taking Tylenol at home for her fever. She denies nausea, vomiting, chest pain, loss of taste or smell. Patient does have a history of asthma and does use inhalers at home. Review of Systems: Review of Systems: Constitutional: negative unless reported in HPI Eyes: negative unless reported in HPI HENT: negative unless reported in HPI Respiratory: negative unless reported in HPI Cardiovascular: negative unless reported in HPI GI: negative unless reported in HPI : negative unless reported in HPI Musculoskeletal: negative unless reported in HPI Integument: negative unless reported in HPI Neurologic: negative unless reported in HPI Endocrine: negative unless reported in HPI Lymphatic: negative unless reported in HPI Psychiatric: negative unless reported in HPI Heart Score: C/O Chest Pain: No Risk Factors: Risk Factors: DM, Current or recent (<one month) smoker, HTN, HLP, family history of CAD, obesity. Risk Scores: Score 0 - 3: 2.5% MACE over next 6 weeks - Discharge Home Score 4 - 6: 20.3% MACE over next 6 weeks - Admit for Clinical Observation Score 7 - 10: 72.7% MACE over next 6 weeks - Early Invasive Strategies Allergies: Allergies: Allergies Coded Allergies Type Severity Reaction Last Updated Verified No Known Drug Allergies 03/16/21 No Physical Exam: PE: Constitutional: Well developed, well nourished, no acute distress, non-toxic appearance. [] HENT: Normocephalic, atraumatic, bilateral external ears normal, oropharynx moist, no oral exudates, nose normal. [] Eyes: PERRL, EOMI, conjunctiva normal, no discharge. [] Neck: Normal range of motion, no tenderness, supple, no stridor. [] Cardiovascular:Heart rate regular rhythm, no murmur [] Lungs & Thorax: Bilateral breath sounds clear to auscultation [] Abdomen: Bowel sounds normal, soft, no tenderness, no masses, obese, no pulsatile masses. [] Skin: Warm, dry, no erythema, no rash. [] Back: Normal range of motion Extremities: No tenderness, no cyanosis, no clubbing, ROM intact, no edema. [] Neurologic: Alert and oriented X 3, normal motor function, normal sensory function, no focal deficits noted. [] Psychologic: Affect normal, judgement normal, mood normal. [] Current Patient Data: Vital Signs: Vital Signs Date Time Temp Pulse Resp B/P (MAP) Pulse Ox O2 Delivery O2 Flow Rate FiO2 03/16/21 16:53 98.9 67 22 138/82 (100) 97 Room Air 98.9 EKG: EKG: [] Radiology/Procedures: Radiology/Procedures: []PROCEDURE: PORTABLE CHEST 1V Exam: Chest one view INDICATION: Short of air TECHNIQUE: Frontal view of the chest Comparisons: 03/13/2021 FINDINGS: The cardiomediastinal silhouette and pulmonary vessels are within normal limits. The lung and pleural spaces are clear. IMPRESSION: No acute cardiopulmonary process. Electronically signed by: Laura Mcbride MD (03/16/2021 5:18 PM) [facility] DICTATED and SIGNED BY: LAURA MCBRIDE MD DATE: 03/16/21 [id number] Course & Med Decision Making: Course & Med Decision Making Pertinent Labs and Imaging studies reviewed. (See chart for details) [] Patient presents to the emergency department with cough, shortness of breath, chest congestion and intermittent fever since March 07. Patient was tested for influenza and COVID-19 and this was negative. Chest x-ray performed to rule out pneumonia that showed no acute findings. Her vital signs are stable and she is in no acute distress, lung sounds are clear. Patient reports that she has inhalers at home to use for shortness of breath and she is advised to use that. Patient advised to use Delsym [id number] for her cough. She is also advised to take Tylenol and ibuprofen for her pain or fevers. I discussed with patient all findings and diagnostic testing as well as the need to follow-up with PCP for further evaluation and treatment or return to the ER if any new or worsening symptoms. Strict return precautions were also discussed at length. Patient voiced understanding and agreement with the plan. Patient is hemodynamically stable at the time of disposition. Dragon Disclaimer: Keyon Disclaimer: This electronic medical record was generated, in whole or in part, using a voice recognition dictation system. Departure Departure Impression: Primary Impression: Cough Disposition: HOME / SELF CARE / HOMELESS Condition: GOOD Referrals: CHARLES RING MD (PCP) Patient Instructions: Cough, Adult Additional Instructions: You are seen in the emergency department for cough, shortness of breath, fever and chest congestion. For any pain or fevers please take Tylenol and ibuprofen. Increase your fluids and rest. For your cough take Delsym [id number]. Continue to use your inhalers as needed for shortness of breath. Follow-up with your primary care provider tomorrow regarding your ER visit. Return to the emergency department if you develop chest pain, shortness of breath, high fevers refractory to treatment, intractable nausea or vomiting, weakness. RADHA SORENSON GOVERNMENT GUARD Mar 16, 2021 17:30
[2021-03-16 17:41] LABS: INFLUENZA A PATIENT NEGATIVE (NEGATIVE); INFLUENZA B PATIENT NEGATIVE (NEGATIVE)
== END 2021-03-16 18:08 | disposition home or self-care (01) ==
LOC: ER 16:38
DX: R05.9 Cough, unspecified (principal); Z20.822 Contact with and (suspected) exposure to COVID-19; R06.02 Shortness of breath; R09.89 Other specified symptoms and signs involving the circulatory and respiratory systems; R50.9 Fever, unspecified; J45.909 Unspecified asthma, uncomplicated; E78.00 Pure hypercholesterolemia, unspecified; I10 Essential (primary) hypertension
CPT/HCPCS: 71045; 87428; 99284

== ENCOUNTER 2021-05-30 23:30 | Emergency (ER) | payer OTHER ==
[~2021-05-30] VITALS: Ht 172.7 cm; Wt 145.9 kg
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
[2021-05-31] MEDS ORDERED: CLON1TAB12 PO (00:24)
[2021-05-31 00:44] VITALS: BP 117/64
== END 2021-05-31 00:56 | disposition home or self-care (01) ==
LOC: ER 23:30
DX: F41.9 Anxiety disorder, unspecified (principal); I10 Essential (primary) hypertension; F43.9 Reaction to severe stress, unspecified; J45.909 Unspecified asthma, uncomplicated; E78.00 Pure hypercholesterolemia, unspecified
CPT/HCPCS: 99283

== ENCOUNTER 2021-07-02 03:30 | Emergency (ER) | payer OTHER ==
[~2021-07-02] VITALS: Ht 172.7 cm; Wt 145.0 kg
[~2021-07-02 03:30] MED LIST changes: +CLON1TAB12 PO
--- NOTE | 2021-07-02 04:54 | ED.ADGEN ---
Past Medical History Past Medical History: Anxiety, Asthma, High Cholesterol, Hypertension, Other Additional Past Medical Histor: rheumatoid arthritis, ibs Past Surgical History: No Surgical History Smoking Status: Never Smoker Alcohol Use: None Drug Use: None General Adult EDM: Chief Complaint: ASTHMA HPI: HPI: Patient is a 51 year old female coming in for asthma. Patient states that she is having coughing wheezing or short of breath. Is not been using her inhalers but states that her mouth and face feel dry. Patient denies any rhinorrhea. Patient states that she does not have to get admitted multiple times tonight to use the restroom and drink water. Patient states she gets up and has a dry sensation in her mouth. Denies any dysuria. Review of Systems: Review of Systems: All other systems within normal limits except for as noted in the HPI Current Medications: Current Medications Medications (Trade) Dose Ordered Sig/Fortino Start Time Stop Time Status Last Admin Dose Admin Amlodipine Besylate (Norvasc) 10 mg DAILY 07/02/21 05:17 07/02/21 05:22 DC Hydralazine HCl (Apresoline Inj) 10 mg 1X ONCE 07/02/21 05:15 07/02/21 05:22 DC Lorazepam (Ativan Inj) 0.5 mg 1X ONCE 07/02/21 05:15 07/02/21 05:22 DC Allergies: Allergies: Allergies Coded Allergies Type Severity Reaction Last Updated Verified No Known Drug Allergies 05/30/21 No Physical Exam: PE: Constitutional: Well developed, well nourished, no acute distress, non-toxic appearance. [] HENT: Normocephalic, atraumatic, bilateral external ears normal, nose normal. [] Eyes: PERRLA, conjunctiva normal, no discharge. [] Neck: No rigidity, supple, no stridor. [] Cardiovascular: Regular rate and rhythm, brisk cap refill [] Lungs & Thorax: Non labored symmetric respirations, no tachypnea or respiratory distress. No wheezing [] Abdomen: Soft, nondistended. Skin: Warm, dry, no erythema, no rash. [] Back: Unremarkable Extremities: No deformities, range of motion grossly intact, no lower extremity edema [] Neurologic: Alert and oriented X 3, no focal deficits noted. [] Psychologic: Affect normal, judgement normal, mood normal. [] Current Patient Data: Labs: Laboratory Tests Test 07/02/21 05:10 Urine Collection Type Unknown Urine Color (Auto) Light yellow Urine Turbidity Clear Urine pH (Auto) 5.5 (<5.0-8.0) Urine Specific [place] 1.006 (1.000-1.030) Urine Protein (Auto) Negative mg/dL (Negative) Urine Glucose (Auto)(UA) Negative mg/dL (Negative) Urine Ketones (Auto) Negative mg/dL (Negative) Urine Blood (Auto) Negative (Negative) Urine Nitrite Negative (Negative) Urine Bilirubin (Auto) Negative (Negative) Urine Urobilinogen (Auto) Normal mg/dL (Normal) Urine Leukocyte Esterase (Auto) Negative (Negative) Urine RBC 0 /HPF (0-2) Urine WBC 1-4 /HPF (0-4) Urine Squamous Epithelial Cells Mod /LPF Urine Bacteria 0 /HPF (0-FEW) Urine Mucus Slight /LPF Vital Signs: Vital Signs Date Time Temp Pulse Resp B/P (MAP) Pulse Ox O2 Delivery O2 Flow Rate FiO2 07/02/21 04:03 98.0 76 18 120/83 (95) 100 Room Air 98.0 EKG: EKG: [] Heart Score: C/O Chest Pain: No Risk Factors: Risk Factors: DM, Current or recent (<one month) smoker, HTN, HLP, family history of CAD, obesity. Risk Scores: Score 0 - 3: 2.5% MACE over next 6 weeks - Discharge Home Score 4 - 6: 20.3% MACE over next 6 weeks - Admit for Clinical Observation Score 7 - 10: 72.7% MACE over next 6 weeks - Early Invasive Strategies Radiology/Procedures: Radiology/Procedures: [] Course & Med Decision Making: Course & Med Decision Making Patient exam unremarkable. Patient mainly comes complaining of dryness with her sinuses and mouth. Patient's lungs are clear without wheezes and good air movement. Discussed getting a humidifier for symptomatic treatment [place] Disclaimer: [place] Disclaimer: This electronic medical record was generated, in whole or in part, using a voice recognition dictation system. Departure Departure Impression: Primary Impression: Dry mouth Disposition: HOME / SELF CARE / HOMELESS Condition: STABLE Referrals: CHARLES RING MD (PCP) Patient Instructions: [employer] SOHEILA SEWELL MD July 02, 2021 04:54
[2021-07-02] MEDS ORDERED: hydrALAZINE 20 MG/ML VIAL. IVP ONE (05:15)
[2021-07-02 05:22] LABS: BACTERIA,URINE 0 /HPF (0-FEW); RBC,URINE 0 /HPF (0-2)
[2021-07-02 05:38] VITALS: BP 142/83
== END 2021-07-02 05:54 | disposition home or self-care (01) ==
LOC: ER 03:30
DX: R68.2 Dry mouth, unspecified (principal); R05.9 Cough, unspecified; R06.02 Shortness of breath; R06.2 Wheezing; J45.909 Unspecified asthma, uncomplicated; E78.00 Pure hypercholesterolemia, unspecified; I10 Essential (primary) hypertension
CPT/HCPCS: 81001; 99283